=== PATIENT | female | born 1990 | race African-American/Black ===

== ENCOUNTER 2018-03-28 11:33 | Observation (INO) | payer MEDICAID, OTHER ==
[~2018-03-28] VITALS: Ht 152.4 cm; Wt 52.2 kg
[2018-03-28] MEDS ORDERED: PNV1TABL50 PO (11:46)
[2018-03-28 13:14] LABS: CLARITY URINE CLOUDY (CLEAR); COLOR URINE YELLOW (YELLOW); KETONES URINE NEGATIVE (NEGATIVE); LEUKOCYTE ESTERASE URINE 1+ (NEGATIVE); NITRITE URINE POSITIVE (NEGATIVE); OCCULT BLOOD URINE NEGATIVE (NEGATIVE); PH URINE 7.5 (4.5-8.0); PROTEIN URINE NEGATIVE (NEGATIVE); SPECIFIC GRAVITY URINE 1.013 (1.005-1.030)
[2018-03-28] MEDS ORDERED: LACTATED RINGERS 1,000 ML IV SCH (14:00)
[2018-03-28] MEDS ORDERED: CEFAZOLIN 2,000 MG in DEXT 5% WATER 100 ML IV SCH (14:45)
[2018-03-28] MEDS ORDERED: ACETAMINOPHEN 500MG TABLET PO SCH (15:00)
== END 2018-03-28 16:00 | disposition home or self-care (01) ==
LOC: L&D 11:33
PROVIDERS: ADMIT Specialist; ATTEND Specialist
DX: O26.892 Other specified pregnancy related conditions, second trimester (principal); R10.2 Pelvic and perineal pain; M79.652 Pain in left thigh; Z3A.23 23 weeks gestation of pregnancy
CPT/HCPCS: 81003; 96360; 96361; 99281; G0378; J0690; J7120; 96365; J7060

== ENCOUNTER 2018-06-14 08:58 | Observation (INO) | payer MEDICAID ==
[~2018-06-14] VITALS: Ht 154.9 cm; Wt 63.5 kg
[~2018-06-14 08:58] MED LIST: PNV1TABL50 PO
== END 2018-06-14 10:00 | disposition home or self-care (01) ==
LOC: L&D 08:58
PROVIDERS: ADMIT Obstetrics & Gynecology; ATTEND Obstetrics & Gynecology
DX: O26.893 Other specified pregnancy related conditions, third trimester (principal); R10.30 Lower abdominal pain, unspecified; R51 Headache; R07.89 Other chest pain; H53.8 Other visual disturbances; Z3A.35 35 weeks gestation of pregnancy
CPT/HCPCS: G0378

== ENCOUNTER 2021-09-18 17:09 | Inpatient (IN) | payer MEDICAID ==
[~2021-09-18] VITALS: Ht 175.3 cm; Wt 51.7 kg
[~2021-09-18 17:09] MED LIST changes: +AMIODARONE HCL 50MG/ML 3ML VIAL IV ONE; +EPINEPHRINE 0.1MG/ML (1:10,000) 10ML SYR ONE; +MAGNESIUM SULFATE 4G IN WATER 100ML PREMIX IV ONE; +MIDAZOLAM HCL 5 MG/5 ML VIAL ONE; +SODIUM BICARBONATE 8.4% 1 MEQ/ML 50ML SYR IV ONE
[2021-09-18] MEDS ORDERED: PROPOFOL 10MG/ML 100ML 100 ML IV ONE (17:30)
[2021-09-18] MEDS ORDERED: AMIODARONE HCL 150 MG in DEXT 5% WATER 97 ML IV ONE (17:30)
[2021-09-18] MEDS ORDERED: SODIUM CHLORIDE 0.9% 1,000 ML IV ONE (17:30)
[2021-09-18] MEDS ORDERED: EPINEPHRINE 10 MG in SODIUM CHLORIDE 0.9% 250 ML IV NR (17:30)
[2021-09-18] MEDS ORDERED: VANCOMYCIN 1G PREMIX 200 ML IV SCH (17:30)
[2021-09-18] MEDS ORDERED: PIPERACILLIN/TAZ 3.375G PREMIX 50 ML IV ONE (17:30)
[2021-09-18] MEDS ORDERED: MIDAZOLAM HCL 100 MG in DEXT 5% WATER 80 ML IV ONE (17:30)
[2021-09-18] MEDS ORDERED: MIDAZOLAM HCL 100 MG in SODIUM CHLORIDE 0.9% 100 ML IV PRN (17:45)
[2021-09-18] MEDS ORDERED: AMIODARONE HCL 900 MG in DEXT 5% WATER 500 ML IV ONE (17:45)
[2021-09-18] MEDS ORDERED: ALBUTEROL (0.083%) 2.5MG/3ML NEB HHN STA (17:53)
[2021-09-18 17:54] LABS: BASOPHILS % 0.2 % (0.0-2.0); HEMATOCRIT. 30.3 % (36.0-48.0); HEMOGLOBIN. 9.6 g/dL (12.0-16.0); LYMPHOCYTES % 20.1 % (20.0-50.0); MEAN CORPUSCULAR HEMOGLOBIN 28.5 pg (28.0-32.0); MEAN CORPUSCULAR VOLUME 90.1 fL (81.0-99.0); MONOCYTES % 6.3 % (2.0-8.0); NEUTROPHILS % 73.4 % (40.0-76.0); PLATELET 143 x1000/uL (130-400); RED BLOOD CELL COUNT 3.36 mill/uL (4.2-5.4); RED CELL DISTRIBUTION WIDTH 14.1 % (11.6-14.6)
[2021-09-18 17:58] LABS: BG BASE EXCESS -12.1 mmol/L (-2.0-2.0); BG CARBOXYHEMOGLOBIN 0.3 % (0.5-1.5); BG DEOXYHEMOGLOBIN 0.9 % (0.0-5.0); BG HCO3 ACT 15.3 mmol/L (22.0-26.0); BG METHEMOGLOBIN 0.3 % (0.0-1.5); BG OXYGEN SATURATION 99.1 % (92.0-98.5); BG OXYHEMOGLOBIN 98.5 % (94.0-97.0); BG PCO2 40.5 mmHg (35.0-45.0); BG PH 7.195 (7.350-7.450); BG PO2 380.4 mmHg (75.0-100.0); BG SAMPLE SITE RIGHT BRACHIAL; BG VENT MODE VENT - AC
[2021-09-18 18:01] LABS: CHLORIDE 105 mEq/L (98-107)
[2021-09-18 18:05] LABS: ETHANOL BLOOD < 10 mg/dL
[2021-09-18 18:07] LABS: CLARITY URINE CLOUDY (CLEAR); COLOR URINE DARK YELLOW (YELLOW); KETONES URINE TRACE (NEGATIVE); LEUKOCYTE ESTERASE URINE 1+ (NEGATIVE); NITRITE URINE NEGATIVE (NEGATIVE); OCCULT BLOOD URINE 2+ (NEGATIVE); PH URINE 5.5 (4.5-8.0); PROTEIN URINE 3+ (NEGATIVE); SPECIFIC GRAVITY URINE 1.028 (1.005-1.030)
[2021-09-18 18:09] LABS: CREATINE KINASE 106 IU/L (26-192)
[2021-09-18 18:24] LABS: METHADONE URINE SCREEN NEGATIVE (NEGATIVE)
[2021-09-18 18:25] LABS: *AMPHETAMINES SCREEN URINE NEGATIVE (NEGATIVE); *BARBITURATES SCREEN URINE NEGATIVE (NEGATIVE); *BENZODIAZEPINES SCREEN URINE NEGATIVE (NEGATIVE); *COCAINE SCREEN URINE NEGATIVE (NEGATIVE); OPIATES URINE SCREEN NEGATIVE (NEGATIVE); PHENCYCLIDINE URINE SCREEN NEGATIVE (NEGATIVE)
[2021-09-18 18:28] LABS: CANNABINOID URINE SCREEN PRESUMTIVE POSITIVE (NEGATIVE)
[2021-09-18] MEDS: EPINEPHRINE 10 MG in SODIUM CHLORIDE 0.9% 250 ML IV NR (18:59)
[2021-09-18] MEDS ORDERED: KCL 20MEQ/100ML PREMIX 100 ML IV NR (19:00)
[2021-09-18] MEDS ORDERED: HYDROCORTISONE SOD SUCCINATE 100 MG/2 ML VIAL IV NR (19:00)
[2021-09-18] MEDS ORDERED: SODIUM BICARBONATE 50 MEQ in DEXTROSE 5% WATER 1,000 ML IV ONE (19:00)
[2021-09-18 19:48] LABS: HCG SCREEN NEGATIVE
[2021-09-18 19:50] LABS: INR 1.4; PROTHROMBIN TIME 14.5 sec (9.6-11.0)
[2021-09-18] MEDS ORDERED: IOHEXOL-350 100 ML BOTTLE ONE (23:33)
[2021-09-19] VITALS (52 sets, daily range): BP systolic 78–125; BP diastolic 40–76
[2021-09-19 00:13] LABS: CHLORIDE 107 mEq/L (98-107)
[2021-09-19] MEDS ORDERED: DEXTROSE 50% WATER 50ML SYRINGE IV PRN (00:15)
[2021-09-19] MEDS ORDERED: MEPERIDINE HCL/PF 25MG/ML CPJ IV PRN (00:15)
[2021-09-19 00:19] LABS: PHOSPHORUS 3.3 mg/dL (2.5-4.9)
[2021-09-19] MEDS: INSULIN REGULAR 100U/100ML PMX 100 ML IV SCH ×2 (00:32→16:01)
[2021-09-19 00:34] LABS: CREATINE KINASE 4940 IU/L (26-192)
[2021-09-19] MEDS: BLOOD SUGAR DIAGNOSTIC STRIP TEST SCH ×22 (01:12→23:00)
[2021-09-19] MEDS: KCL 20MEQ/100ML X 2 FOR TOTAL KCL 40MEQ/200ML IV SCH ×5 (01:47→23:42)
[2021-09-19] MEDS: EPINEPHRINE 10 MG in SODIUM CHLORIDE 0.9% 250 ML IV NR (02:48)
[2021-09-19] MEDS ORDERED: PROPOFOL 10MG/ML 100ML 100 ML IV PRN ×2 (03:00→23:30)
[2021-09-19 05:08] LABS: HEMATOCRIT. 45.8 % (36.0-48.0); HEMOGLOBIN. 14.6 g/dL (12.0-16.0); MEAN CORPUSCULAR HEMOGLOBIN 28.8 pg (28.0-32.0); MEAN CORPUSCULAR VOLUME 90.5 fL (81.0-99.0); PLATELET 207 x1000/uL (130-400); RED BLOOD CELL COUNT 5.06 mill/uL (4.2-5.4); RED CELL DISTRIBUTION WIDTH 14.4 % (11.6-14.6)
[2021-09-19 05:15] LABS: CHLORIDE 109 mEq/L (98-107)
[2021-09-19 05:20] LABS: PHOSPHORUS 1.7 mg/dL (2.5-4.9)
[2021-09-19 06:10] LABS: BG BASE EXCESS -20.4 mmol/L (-2.0-2.0); BG CARBOXYHEMOGLOBIN 0.5 % (0.5-1.5); BG DEOXYHEMOGLOBIN 14.1 % (0.0-5.0); BG FRACTION INSPIRED OXYGEN 80; BG HCO3 ACT 8.5 mmol/L (22.0-26.0); BG METHEMOGLOBIN 0.3 % (0.0-1.5); BG OXYGEN SATURATION 85.8 % (92.0-98.5); BG OXYHEMOGLOBIN 85.1 % (94.0-97.0); BG PCO2 29.9 mmHg (35.0-45.0); BG PH 7.073 (7.350-7.450); BG PO2 62.8 mmHg (75.0-100.0); BG SAMPLE SITE RIGHT BRACHIAL; BG TOTAL HEMOGLOBIN 15.5 g/dL (12.0-18.0); BG TOTAL RESPIRATORY RATE 32 b/min; BG VENT MODE VENT - AC
[2021-09-19 06:10] LABS: CREATINE KINASE 6131 IU/L (26-192)
[2021-09-19] MEDS ORDERED: MIDAZOLAM 100MG/100ML PREMIX IV PRN (06:45)
[2021-09-19] MEDS ORDERED: SODIUM BICARBONATE 8.4% 1 MEQ/ML 50ML SYR IV SCH (08:00)
[2021-09-19] MEDS ORDERED: AMIODARONE HCL 900 MG in DEXT 5% WATER 500 ML IV SCH (08:00)
[2021-09-19] MEDS ORDERED: SODIUM BICARBONATE 50 MEQ in DEXTROSE 5% WATER 1,000 ML IV SCH (08:00)
[2021-09-19 08:11] LABS: INR 1.8; PARTIAL THROMBOPLASTIN TIME 37.6 sec (23.4-31.0); PROTHROMBIN TIME 18.9 sec (9.6-11.0)
[2021-09-19] MEDS ORDERED: PIPERACILLIN/TAZ 3.375G PREMIX 50 ML IV SCH (09:00)
[2021-09-19] MEDS: PANTOPRAZOLE SODIUM 40 MG/VIAL IV SCH (10:10)
[2021-09-19] MEDS ORDERED: FENTANYL CITRATE/PF 1,000 MCG in SODIUM CHLORIDE 0.9% 80 ML IV PRN (10:30)
[2021-09-19] MEDS ORDERED: BUSPIRONE HCL 10MG TABLET NG PRN (10:30)
[2021-09-19] MEDS ORDERED: FENTANYL CITRATE 2,500 MCG in SODIUM CHLORIDE 0.9% 200 ML IV PRN (10:45)
[2021-09-19] MEDS: SODIUM BICARBONATE 150 MEQ in DEXTROSE 5% WATER 1,000 ML IV SCH ×2 (11:00→15:26)
[2021-09-19 11:19] LABS: INR 1.9; PARTIAL THROMBOPLASTIN TIME 35.6 sec (23.4-31.0); PROTHROMBIN TIME 19.6 sec (9.6-11.0)
[2021-09-19] MEDS: NOREPINEPHRINE 32 MG in DEXT 5% WATER 218 ML IV PRN (12:55)
[2021-09-19 13:14] LABS: BG BASE EXCESS -14.4 mmol/L (-2.0-2.0); BG CARBOXYHEMOGLOBIN 0.1 % (0.5-1.5); BG DEOXYHEMOGLOBIN 30.6 % (0.0-5.0); BG FRACTION INSPIRED OXYGEN 80; BG HCO3 ACT 12.6 mmol/L (22.0-26.0); BG OXYGEN SATURATION 69.4 % (92.0-98.5); BG OXYHEMOGLOBIN 69.3 % (94.0-97.0); BG PCO2 33.4 mmHg (35.0-45.0); BG PH 7.193 (7.350-7.450); BG PO2 38.1 mmHg (75.0-100.0); BG SAMPLE SITE RIGHT BRACHIAL; BG TOTAL HEMOGLOBIN 16.8 g/dL (12.0-18.0); BG VENT MODE VENT - AC
[2021-09-19 13:21] LABS: PLATELET ESTIMATE NORMAL
[2021-09-19] MEDS ORDERED: SODIUM BICARBONATE 8.4% 1 MEQ/ML 50ML SYR IV NR (13:30)
[2021-09-19] MEDS ORDERED: MIDAZOLAM 100MG/100ML PMX 100 ML IV PRN (14:15)
[2021-09-19] MEDS: PIPERACILLIN/TAZOBACTAM 3.375 G in DEXTROSE 5% WATER 50 ML IV SCH ×2 (15:29→22:32)
[2021-09-19] MEDS: LEVETIRACETAM 500MG PREMIX 100 ML IV SCH ×2 (15:54→23:07)
[2021-09-19] MEDS: MIDAZOLAM HCL 100 MG in SODIUM CHLORIDE 0.9% 100 ML IV PRN (16:22)
[2021-09-19 16:28] LABS: CHLORIDE 112 mEq/L (98-107)
[2021-09-19 16:34] LABS: PHOSPHORUS 1.5 mg/dL (2.5-4.9)
[2021-09-19 17:54] LABS: BG BASE EXCESS -5.5 mmol/L (-2.0-2.0); BG CARBOXYHEMOGLOBIN 0.5 % (0.5-1.5); BG DEOXYHEMOGLOBIN 23.4 % (0.0-5.0); BG FRACTION INSPIRED OXYGEN 100; BG HCO3 ACT 17.6 mmol/L (22.0-26.0); BG OXYGEN SATURATION 76.5 % (92.0-98.5); BG OXYHEMOGLOBIN 76.1 % (94.0-97.0); BG PCO2 28.8 mmHg (35.0-45.0); BG PH 7.405 (7.350-7.450); BG PO2 37.2 mmHg (75.0-100.0); BG SAMPLE SITE RIGHT BRACHIAL; BG TOTAL HEMOGLOBIN 15.7 g/dL (12.0-18.0); BG VENT MODE VENT - AC
[2021-09-19 18:06] LABS: CREATINE KINASE 8333 IU/L (26-192)
[2021-09-19 21:59] LABS: PHOSPHORUS 1.1 mg/dL (2.5-4.9)
[2021-09-19 22:26] LABS: BG BASE EXCESS -1.9 mmol/L (-2.0-2.0); BG CARBOXYHEMOGLOBIN 0.1 % (0.5-1.5); BG DEOXYHEMOGLOBIN 9.3 % (0.0-5.0); BG FRACTION INSPIRED OXYGEN 100; BG HCO3 ACT 19.5 mmol/L (22.0-26.0); BG OXYGEN SATURATION 90.7 % (92.0-98.5); BG OXYHEMOGLOBIN 90.6 % (94.0-97.0); BG PCO2 25.9 mmHg (35.0-45.0); BG PH 7.495 (7.350-7.450); BG PO2 53.9 mmHg (75.0-100.0); BG SAMPLE SITE RIGHT BRACHIAL; BG TOTAL HEMOGLOBIN 15.8 g/dL (12.0-18.0); BG VENT MODE VENT - AC
[2021-09-19] MEDS: DEXTROSE 50% WATER 50ML SYRINGE IV PRN (22:33)
[2021-09-19 22:36] LABS: CHLORIDE 111 mEq/L (98-107)
[2021-09-19] MEDS ORDERED: POTASSIUM CHLORIDE INJ 40 MEQ in DEXT 5% WATER 250 ML IV ONE (23:15)
[2021-09-20] VITALS (95 sets, daily range): BP systolic 88–143; BP diastolic 43–69
[2021-09-20] MEDS ORDERED: SODIUM PHOS M BASIC D BASIC IV NR ×2
[2021-09-20] MEDS ORDERED: WATER IV NR ×2
[2021-09-20] MEDS ORDERED: DEXT IV NR ×2
[2021-09-20] MEDS: BLOOD SUGAR DIAGNOSTIC STRIP TEST SCH ×9 (00:27→14:08)
[2021-09-20] MEDS: DEXTROSE 50% WATER 50ML SYRINGE IV PRN (00:28)
[2021-09-20] MEDS: INSULIN LISPRO 100 UNITS/ML SUBCUT SCH ×7 (02:00→14:00)
[2021-09-20] MEDS ORDERED: DEXTROSE 50% WATER 50ML SYRINGE IV PRN ×2 (02:00→07:00)
[2021-09-20] MEDS: KCL 20MEQ/100ML X 2 FOR TOTAL KCL 40MEQ/200ML IV SCH (02:16)
[2021-09-20] MEDS ORDERED: FUROSEMIDE 20MG/2ML VIAL IVP NR (03:15)
[2021-09-20] MEDS: SODIUM BICARBONATE 150 MEQ in DEXTROSE 5% WATER 1,000 ML IV SCH (03:40)
[2021-09-20] MEDS: NOREPINEPHRINE 32 MG in DEXT 5% WATER 218 ML IV PRN ×2 (03:41→18:06)
[2021-09-20] MEDS: MIDAZOLAM HCL 100 MG in SODIUM CHLORIDE 0.9% 100 ML IV PRN ×2 (03:43→12:48)
[2021-09-20] MEDS ORDERED: ALBUMIN HUMAN 12.5G/250ML (5%) IV NR (05:15)
[2021-09-20] MEDS: PIPERACILLIN/TAZOBACTAM 3.375 G in DEXTROSE 5% WATER 50 ML IV SCH ×3 (05:58→22:08)
[2021-09-20] MEDS ORDERED: DEXTROSE 50% WATER 50ML SYRINGE IV ONE (06:00)
[2021-09-20 07:51] LABS: CHLORIDE 108 mEq/L (98-107)
[2021-09-20 07:56] LABS: PHOSPHORUS 1.3 mg/dL (2.5-4.9)
[2021-09-20] MEDS: LEVETIRACETAM 500MG PREMIX 100 ML IV SCH ×2 (08:28→21:37)
[2021-09-20] MEDS: PANTOPRAZOLE SODIUM 40 MG/VIAL IV SCH (08:28)
[2021-09-20] MEDS ORDERED: MAGNESIUM 2 G PREMIX 50 ML IV SCH (10:00)
[2021-09-20] MEDS ORDERED: POTASSIUM PHOS,M-BASIC-D-BASIC 30 MMOL in DEXT 5% WATER 500 ML IV SCH (10:00)
[2021-09-20] MEDS ORDERED: CALCIUM GLUCONATE 1GM PREMIX 50 ML IV SCH (10:00)
[2021-09-20 10:13] LABS: BG BASE EXCESS 2.5 mmol/L (-2.0-2.0); BG CARBOXYHEMOGLOBIN 0.3 % (0.5-1.5); BG DEOXYHEMOGLOBIN 4.1 % (0.0-5.0); BG HCO3 ACT 22.8 mmol/L (22.0-26.0); BG METHEMOGLOBIN 0.2 % (0.0-1.5); BG OXYGEN SATURATION 95.9 % (92.0-98.5); BG OXYHEMOGLOBIN 95.4 % (94.0-97.0); BG PCO2 24.3 mmHg (35.0-45.0); BG PO2 69.9 mmHg (75.0-100.0); BG SAMPLE SITE RIGHT BRACHIAL; BG TOTAL HEMOGLOBIN 13.4 g/dL (12.0-18.0); BG VENT MODE VENT - AC
[2021-09-20 10:27] LABS: BASOPHILS % 0.1 % (0.0-2.0); EOSINOPHILS % 0.1 % (0.0-5.0); HEMATOCRIT. 40.1 % (36.0-48.0); HEMOGLOBIN. 13.6 g/dL (12.0-16.0); LYMPHOCYTES % 13.1 % (20.0-50.0); MEAN CORPUSCULAR HEMOGLOBIN 28.7 pg (28.0-32.0); MEAN CORPUSCULAR VOLUME 84.4 fL (81.0-99.0); MEAN PLATELET VOLUME 9.7 fl (7.4-10.4); MONOCYTES % 3.2 % (2.0-8.0); NEUTROPHILS % 83.5 % (40.0-76.0); RED BLOOD CELL COUNT 4.75 mill/uL (4.2-5.4); RED CELL DISTRIBUTION WIDTH 14.2 % (11.6-14.6)
[2021-09-20 10:30] LABS: PLATELET 74 x1000/uL (130-400)
[2021-09-20 10:34] LABS: INR 2.7; PARTIAL THROMBOPLASTIN TIME 34.5 sec (23.4-31.0); PROTHROMBIN TIME 26.6 sec (9.6-11.0)
[2021-09-20 11:14] LABS: PHOSPHORUS 2.2 mg/dL (2.5-4.9)
[2021-09-20] MEDS ORDERED: DEXT 5%/0.45% NACL 1000ML 1,000 ML IV SCH (11:45)
[2021-09-20] MEDS ORDERED: VANCOMYCIN 1,000 MG in DEXT 5% WATER 250 ML IV SCH (12:00)
[2021-09-20 14:30] LABS: HEMATOCRIT. 39.6 % (36.0-48.0); HEMOGLOBIN. 13.2 g/dL (12.0-16.0); MEAN CORPUSCULAR VOLUME 83.9 fL (81.0-99.0); MEAN PLATELET VOLUME 9.7 fl (7.4-10.4); PLATELET 80 x1000/uL (130-400); RED BLOOD CELL COUNT 4.72 mill/uL (4.2-5.4); RED CELL DISTRIBUTION WIDTH 14.2 % (11.6-14.6)
[2021-09-20 14:40] LABS: CHLORIDE 103 mEq/L (98-107)
[2021-09-20 14:42] LABS: INR 2.9; PARTIAL THROMBOPLASTIN TIME 35.5 sec (23.4-31.0); PROTHROMBIN TIME 28.4 sec (9.6-11.0)
[2021-09-20 14:46] LABS: PHOSPHORUS 1.5 mg/dL (2.5-4.9)
[2021-09-20 15:14] LABS: NUCLEATED RED BLOOD CELLS 2 /100 WBC; PLATELET ESTIMATE SLIGHTLY DECREASED
[2021-09-20 16:11] LABS: BG BASE EXCESS 1.5 mmol/L (-2.0-2.0); BG CARBOXYHEMOGLOBIN 0.2 % (0.5-1.5); BG DEOXYHEMOGLOBIN 3.2 % (0.0-5.0); BG FRACTION INSPIRED OXYGEN 100; BG METHEMOGLOBIN 0.2 % (0.0-1.5); BG OXYGEN SATURATION 96.8 % (92.0-98.5); BG OXYHEMOGLOBIN 96.4 % (94.0-97.0); BG PCO2 27.6 mmHg (35.0-45.0); BG PH 7.539 (7.350-7.450); BG PO2 81.8 mmHg (75.0-100.0); BG SAMPLE SITE RIGHT RADIAL; BG VENT MODE VENT - AC
[2021-09-20] MEDS ORDERED: PROPOFOL 10MG/ML 100ML 100 ML IV PRN (18:45)
[2021-09-20 21:18] LABS: HEMATOCRIT. 40.3 % (36.0-48.0); HEMOGLOBIN. 13.3 g/dL (12.0-16.0); MEAN CORPUSCULAR HEMOGLOBIN 28.1 pg (28.0-32.0); MEAN CORPUSCULAR VOLUME 85.1 fL (81.0-99.0); MEAN PLATELET VOLUME 10.2 fl (7.4-10.4); PLATELET 75 x1000/uL (130-400); RED BLOOD CELL COUNT 4.74 mill/uL (4.2-5.4)
[2021-09-20 21:21] LABS: CHLORIDE 102 mEq/L (98-107)
[2021-09-20 21:28] LABS: PHOSPHORUS 3.2 mg/dL (2.5-4.9)
[2021-09-20 21:31] LABS: PARTIAL THROMBOPLASTIN TIME 34.7 sec (23.4-31.0); PROTHROMBIN TIME 20.7 sec (9.6-11.0)
[2021-09-20] MEDS: VANCOMYCIN 750 MG in DEXT 5% WATER 250 ML IV SCH (22:07)
[2021-09-20 22:29] LABS: PLATELET ESTIMATE NORMAL
[2021-09-21] VITALS (95 sets, daily range): BP systolic 88–127; BP diastolic 27–73
[2021-09-21 02:28] LABS: CHLORIDE 101 mEq/L (98-107)
[2021-09-21 02:37] LABS: HEMATOCRIT. 35.9 % (36.0-48.0); HEMOGLOBIN. 12.2 g/dL (12.0-16.0); MEAN CORPUSCULAR HEMOGLOBIN 28.4 pg (28.0-32.0); MEAN CORPUSCULAR VOLUME 83.8 fL (81.0-99.0); MEAN PLATELET VOLUME 11.2 fl (7.4-10.4); PLATELET 82 x1000/uL (130-400); RED BLOOD CELL COUNT 4.28 mill/uL (4.2-5.4); RED CELL DISTRIBUTION WIDTH 14.2 % (11.6-14.6)
[2021-09-21 02:54] LABS: INR 1.6; PARTIAL THROMBOPLASTIN TIME 34.7 sec (23.4-31.0); PROTHROMBIN TIME 16.7 sec (9.6-11.0)
[2021-09-21 04:12] LABS: PLATELET ESTIMATE DECREASED
[2021-09-21] MEDS: VANCOMYCIN 750 MG in DEXT 5% WATER 250 ML IV SCH (06:48)
[2021-09-21] MEDS: PIPERACILLIN/TAZOBACTAM 3.375 G in DEXTROSE 5% WATER 50 ML IV SCH ×3 (06:49→22:00)
[2021-09-21 06:53] LABS: VANCOMYCIN TROUGH 22.3 ug/mL (5.0-10.0)
[2021-09-21] MEDS: PANTOPRAZOLE SODIUM 40 MG/VIAL IV SCH (08:03)
[2021-09-21] MEDS: THIAMINE HCL 100MG TABLET PO SCH (08:03)
[2021-09-21] MEDS: MULTIVITAMINS,THER W-MINERALS TABLET PO SCH (08:03)
[2021-09-21] MEDS: LEVETIRACETAM 500MG PREMIX 100 ML IV SCH ×3 (08:03→22:01)
[2021-09-21] MEDS: FOLIC ACID 1MG TABLET PO SCH (08:04)
[2021-09-21 09:09] LABS: HEMATOCRIT. 32.5 % (36.0-48.0); HEMOGLOBIN. 11.2 g/dL (12.0-16.0); MEAN CORPUSCULAR HEMOGLOBIN 28.6 pg (28.0-32.0); MEAN CORPUSCULAR VOLUME 83.4 fL (81.0-99.0); MEAN PLATELET VOLUME 11.2 fl (7.4-10.4); PLATELET 83 x1000/uL (130-400); RED CELL DISTRIBUTION WIDTH 14.3 % (11.6-14.6)
[2021-09-21 09:15] LABS: BG BASE EXCESS 3.8 mmol/L (-2.0-2.0); BG CARBOXYHEMOGLOBIN 0.1 % (0.5-1.5); BG DEOXYHEMOGLOBIN 0.7 % (0.0-5.0); BG FRACTION INSPIRED OXYGEN 90; BG HCO3 ACT 25.6 mmol/L (22.0-26.0); BG METHEMOGLOBIN 0.4 % (0.0-1.5); BG OXYGEN SATURATION 99.3 % (92.0-98.5); BG OXYHEMOGLOBIN 98.8 % (94.0-97.0); BG PCO2 29.6 mmHg (35.0-45.0); BG PH 7.554 (7.350-7.450); BG PO2 224.8 mmHg (75.0-100.0); BG SAMPLE SITE RIGHT BRACHIAL; BG TOTAL HEMOGLOBIN 11.8 g/dL (12.0-18.0); BG VENT MODE VENT - AC
[2021-09-21 09:15] LABS: CHLORIDE 103 mEq/L (98-107)
[2021-09-21 09:29] LABS: INR 1.3; PARTIAL THROMBOPLASTIN TIME 33.3 sec (23.4-31.0)
[2021-09-21 09:51] LABS: PLATELET ESTIMATE DECREASED
[2021-09-21] MEDS ORDERED: POTASSIUM CHLORIDE 20MEQ/PACKET PO NR (10:15)
[2021-09-21] MEDS ORDERED: KCL 20MEQ/100ML PREMIX 100 ML IV NR (11:00)
[2021-09-21 14:51] LABS: HEMATOCRIT. 35.8 % (36.0-48.0); HEMOGLOBIN. 11.8 g/dL (12.0-16.0); MEAN CORPUSCULAR HEMOGLOBIN 27.9 pg (28.0-32.0); MEAN CORPUSCULAR VOLUME 84.4 fL (81.0-99.0); MEAN PLATELET VOLUME 10.3 fl (7.4-10.4); PLATELET 73 x1000/uL (130-400); RED BLOOD CELL COUNT 4.24 mill/uL (4.2-5.4); RED CELL DISTRIBUTION WIDTH 14.5 % (11.6-14.6)
[2021-09-21 15:01] LABS: CHLORIDE 102 mEq/L (98-107)
[2021-09-21 15:02] LABS: INR 1.2; PARTIAL THROMBOPLASTIN TIME 32.5 sec (23.4-31.0); PROTHROMBIN TIME 12.9 sec (9.6-11.0)
[2021-09-21 15:07] LABS: PHOSPHORUS 4.5 mg/dL (2.5-4.9)
[2021-09-21 15:23] LABS: NUCLEATED RED BLOOD CELLS 1 /100 WBC
[2021-09-21 15:24] LABS: PLATELET ESTIMATE DECREASED
[2021-09-21 16:36] LABS: BG BASE EXCESS 2.5 mmol/L (-2.0-2.0); BG CARBOXYHEMOGLOBIN 0.2 % (0.5-1.5); BG DEOXYHEMOGLOBIN 5.2 % (0.0-5.0); BG FRACTION INSPIRED OXYGEN 50; BG METHEMOGLOBIN 0.3 % (0.0-1.5); BG OXYGEN SATURATION 94.8 % (92.0-98.5); BG OXYHEMOGLOBIN 94.3 % (94.0-97.0); BG PCO2 36.5 mmHg (35.0-45.0); BG PH 7.471 (7.350-7.450); BG PO2 72.7 mmHg (75.0-100.0); BG SAMPLE SITE RIGHT BRACHIAL; BG TOTAL HEMOGLOBIN 12.1 g/dL (12.0-18.0); BG VENT MODE VENT - AC
[2021-09-21] MEDS: VANCOMYCIN 500MG PREMIX 100 ML IV SCH (17:17)
[2021-09-22] VITALS (76 sets, daily range): BP systolic 110–146; BP diastolic 50–93
[2021-09-22 06:06] LABS: HEMATOCRIT. 31.5 % (36.0-48.0); HEMOGLOBIN. 10.9 g/dL (12.0-16.0); MEAN CORPUSCULAR HEMOGLOBIN 29.1 pg (28.0-32.0); MEAN CORPUSCULAR VOLUME 84.1 fL (81.0-99.0); RED BLOOD CELL COUNT 3.74 mill/uL (4.2-5.4); RED CELL DISTRIBUTION WIDTH 14.5 % (11.6-14.6)
[2021-09-22 06:21] LABS: CHLORIDE 107 mEq/L (98-107)
[2021-09-22 06:37] LABS: INR 1.1; PARTIAL THROMBOPLASTIN TIME 28.6 sec (23.4-31.0); PROTHROMBIN TIME 11.4 sec (9.6-11.0)
[2021-09-22 06:39] LABS: PHOSPHORUS 2.1 mg/dL (2.5-4.9)
[2021-09-22] MEDS: VANCOMYCIN 500MG PREMIX 100 ML IV SCH (07:10)
[2021-09-22] MEDS: PIPERACILLIN/TAZOBACTAM 3.375 G in DEXTROSE 5% WATER 50 ML IV SCH ×3 (07:10→23:04)
[2021-09-22 07:48] LABS: PLATELET ESTIMATE DECREASED
[2021-09-22] MEDS: MULTIVITAMINS,THER W-MINERALS TABLET PO SCH (08:49)
[2021-09-22] MEDS: FOLIC ACID 1MG TABLET PO SCH (08:49)
[2021-09-22] MEDS: PANTOPRAZOLE SODIUM 40 MG/VIAL IV SCH (08:49)
[2021-09-22] MEDS: THIAMINE HCL 100MG TABLET PO SCH (08:49)
[2021-09-22] MEDS: LEVETIRACETAM 500MG PREMIX 100 ML IV SCH ×2 (08:51→22:00)
[2021-09-22 08:52] LABS: BG BASE EXCESS 3.1 mmol/L (-2.0-2.0); BG CARBOXYHEMOGLOBIN 0.1 % (0.5-1.5); BG DEOXYHEMOGLOBIN 6.5 % (0.0-5.0); BG FRACTION INSPIRED OXYGEN 50; BG HCO3 ACT 27.4 mmol/L (22.0-26.0); BG METHEMOGLOBIN 0.2 % (0.0-1.5); BG OXYGEN SATURATION 93.5 % (92.0-98.5); BG OXYHEMOGLOBIN 93.2 % (94.0-97.0); BG PCO2 40.6 mmHg (35.0-45.0); BG PH 7.447 (7.350-7.450); BG PO2 67.6 mmHg (75.0-100.0); BG SAMPLE SITE RIGHT BRACHIAL; BG TOTAL HEMOGLOBIN 12.8 g/dL (12.0-18.0); BG VENT MODE VENT - AC
[2021-09-22] MEDS: METOCLOPRAMIDE HCL 10MG/2ML VIAL IV SCH ×2 (11:11→17:14)
[2021-09-22] MEDS ORDERED: IPRATROPIUM/ALBUTEROL 0.5-3(2.5)MG/3ML NEB HHN PRN (11:15)
[2021-09-22] MEDS ORDERED: METOCLOPRAMIDE HCL 5MG TABLET PO SCH (12:00)
[2021-09-22] MEDS: IPRATROPIUM/ALBUTEROL 0.5-3(2.5)MG/3ML NEB HHN SCH ×3 (12:05→20:09)
[2021-09-22 15:32] LABS: HEMATOCRIT. 30.4 % (36.0-48.0); HEMOGLOBIN. 10.2 g/dL (12.0-16.0); MEAN CORPUSCULAR VOLUME 83.4 fL (81.0-99.0); MEAN PLATELET VOLUME 9.7 fl (7.4-10.4); PLATELET 72 x1000/uL (130-400); RED BLOOD CELL COUNT 3.65 mill/uL (4.2-5.4); RED CELL DISTRIBUTION WIDTH 14.6 % (11.6-14.6)
[2021-09-22 15:38] LABS: CHLORIDE 108 mEq/L (98-107)
[2021-09-22 15:44] LABS: PHOSPHORUS 1.8 mg/dL (2.5-4.9)
[2021-09-22 15:49] LABS: INR 1.1; PROTHROMBIN TIME 11.5 sec (9.6-11.0)
[2021-09-22 16:05] LABS: PLATELET ESTIMATE DECREASED
[2021-09-22 16:21] LABS: BG BASE EXCESS 2.2 mmol/L (-2.0-2.0); BG CARBOXYHEMOGLOBIN 0.3 % (0.5-1.5); BG DEOXYHEMOGLOBIN 4.6 % (0.0-5.0); BG FRACTION INSPIRED OXYGEN 50; BG HCO3 ACT 26.2 mmol/L (22.0-26.0); BG METHEMOGLOBIN 0.4 % (0.0-1.5); BG OXYGEN SATURATION 95.4 % (92.0-98.5); BG OXYHEMOGLOBIN 94.7 % (94.0-97.0); BG PCO2 38.2 mmHg (35.0-45.0); BG PH 7.454 (7.350-7.450); BG PO2 75.5 mmHg (75.0-100.0); BG SAMPLE SITE LEFT RADIAL; BG TOTAL HEMOGLOBIN 10.3 g/dL (12.0-18.0); BG VENT MODE VENT - AC
[2021-09-22] MEDS ORDERED: FENTANYL CITRATE/PF 2,500 MCG in SODIUM CHLORIDE 0.9% 200 ML IV PRN (18:00)
[2021-09-23] VITALS (30 sets, daily range): BP systolic 123–148; BP diastolic 67–92
[2021-09-23] MEDS: IPRATROPIUM/ALBUTEROL 0.5-3(2.5)MG/3ML NEB HHN SCH ×6 (00:07→21:10)
[2021-09-23] MEDS: METOCLOPRAMIDE HCL 10MG/2ML VIAL IV SCH ×5 (00:34→23:24)
[2021-09-23] MEDS: ACETAMINOPHEN 325MG TABLET PO PRN ×2 (06:37→19:35)
[2021-09-23] MEDS: PIPERACILLIN/TAZOBACTAM 3.375 G in DEXTROSE 5% WATER 50 ML IV SCH ×3 (06:37→23:23)
[2021-09-23 06:49] LABS: HEMATOCRIT. 28.1 % (36.0-48.0); HEMOGLOBIN. 9.7 g/dL (12.0-16.0); MEAN CORPUSCULAR HEMOGLOBIN 29.1 pg (28.0-32.0); MEAN CORPUSCULAR VOLUME 83.9 fL (81.0-99.0); MEAN PLATELET VOLUME 8.9 fl (7.4-10.4); PLATELET 75 x1000/uL (130-400); RED BLOOD CELL COUNT 3.35 mill/uL (4.2-5.4); RED CELL DISTRIBUTION WIDTH 14.7 % (11.6-14.6)
[2021-09-23] MEDS: FOLIC ACID 1MG TABLET PO SCH (08:47)
[2021-09-23] MEDS: THIAMINE HCL 100MG TABLET PO SCH (08:47)
[2021-09-23] MEDS: PANTOPRAZOLE SODIUM 40 MG/VIAL IV SCH (08:47)
[2021-09-23] MEDS: MULTIVITAMINS,THER W-MINERALS TABLET PO SCH (08:47)
[2021-09-23 08:58] LABS: CHLORIDE 109 mEq/L (98-107)
[2021-09-23 09:21] LABS: BG BASE EXCESS 0.1 mmol/L (-2.0-2.0); BG CARBOXYHEMOGLOBIN 0.3 % (0.5-1.5); BG DEOXYHEMOGLOBIN 4.1 % (0.0-5.0); BG FRACTION INSPIRED OXYGEN 35; BG HCO3 ACT 23.7 mmol/L (22.0-26.0); BG METHEMOGLOBIN 0.2 % (0.0-1.5); BG OXYGEN SATURATION 95.9 % (92.0-98.5); BG OXYHEMOGLOBIN 95.4 % (94.0-97.0); BG PCO2 34.9 mmHg (35.0-45.0); BG PO2 79.7 mmHg (75.0-100.0); BG SAMPLE SITE LEFT RADIAL; BG TOTAL HEMOGLOBIN 11.4 g/dL (12.0-18.0); BG VENT MODE VENT - AC
[2021-09-23 10:07] LABS: PLATELET ESTIMATE SLIGHTLY DECREASED
[2021-09-23] MEDS: LEVETIRACETAM 500MG PREMIX 100 ML IV SCH ×2 (12:34→21:55)
[2021-09-23 16:50] LABS: BG BASE EXCESS 0.4 mmol/L (-2.0-2.0); BG CARBOXYHEMOGLOBIN 0.3 % (0.5-1.5); BG DEOXYHEMOGLOBIN 5.5 % (0.0-5.0); BG FRACTION INSPIRED OXYGEN 35; BG HCO3 ACT 24.1 mmol/L (22.0-26.0); BG METHEMOGLOBIN 0.3 % (0.0-1.5); BG OXYGEN SATURATION 94.5 % (92.0-98.5); BG OXYHEMOGLOBIN 93.9 % (94.0-97.0); BG PCO2 35.1 mmHg (35.0-45.0); BG PH 7.454 (7.350-7.450); BG PO2 68.6 mmHg (75.0-100.0); BG SAMPLE SITE LEFT RADIAL; BG TOTAL HEMOGLOBIN 10.5 g/dL (12.0-18.0); BG VENT MODE VENT - AC
[2021-09-23] MEDS ORDERED: FENTANYL CITRATE/PF 2,500 MCG in DEXT 5% WATER 200 ML IV PRN (19:45)
[2021-09-24] VITALS (72 sets, daily range): BP systolic 120–174; BP diastolic 27–120
[2021-09-24] MEDS: IPRATROPIUM/ALBUTEROL 0.5-3(2.5)MG/3ML NEB HHN SCH ×4 (00:01→16:56)
[2021-09-24] MEDS: METOCLOPRAMIDE HCL 10MG/2ML VIAL IV SCH ×3 (05:21→17:24)
[2021-09-24] MEDS: PIPERACILLIN/TAZOBACTAM 3.375 G in DEXTROSE 5% WATER 50 ML IV SCH ×2 (05:21→14:58)
[2021-09-24] MEDS: ACETAMINOPHEN 325MG TABLET PO PRN ×3 (05:22→20:48)
[2021-09-24 06:49] LABS: HEMATOCRIT. 29.3 % (36.0-48.0); HEMOGLOBIN. 10.1 g/dL (12.0-16.0); MEAN CORPUSCULAR HEMOGLOBIN 28.8 pg (28.0-32.0); MEAN PLATELET VOLUME 8.6 fl (7.4-10.4); PLATELET 66 x1000/uL (130-400); RED BLOOD CELL COUNT 3.49 mill/uL (4.2-5.4); RED CELL DISTRIBUTION WIDTH 14.9 % (11.6-14.6)
[2021-09-24 07:08] LABS: CHLORIDE 112 mEq/L (98-107)
[2021-09-24 08:16] LABS: PLATELET ESTIMATE DECREASED
[2021-09-24] MEDS: FOLIC ACID 1MG TABLET PO SCH (09:18)
[2021-09-24] MEDS: MULTIVITAMINS,THER W-MINERALS TABLET PO SCH (09:18)
[2021-09-24] MEDS: THIAMINE HCL 100MG TABLET PO SCH (09:18)
[2021-09-24] MEDS: PANTOPRAZOLE SODIUM 40 MG/VIAL IV SCH (09:18)
[2021-09-24] MEDS: LEVETIRACETAM 500MG PREMIX 100 ML IV SCH ×2 (09:19→20:49)
[2021-09-24 10:41] LABS: BG BASE EXCESS 2.9 mmol/L (-2.0-2.0); BG CARBOXYHEMOGLOBIN 0.3 % (0.5-1.5); BG FRACTION INSPIRED OXYGEN 45; BG HCO3 ACT 27.7 mmol/L (22.0-26.0); BG METHEMOGLOBIN 0.6 % (0.0-1.5); BG OXYHEMOGLOBIN 98.1 % (94.0-97.0); BG PCO2 43.6 mmHg (35.0-45.0); BG PH 7.421 (7.350-7.450); BG PO2 166.3 mmHg (75.0-100.0); BG SAMPLE SITE RIGHT RADIAL; BG TOTAL HEMOGLOBIN 10.9 g/dL (12.0-18.0); BG VENT MODE VENT - AC
[2021-09-24] MEDS: HYDRALAZINE 20MG/ML VIAL IV PRN (13:42)
[2021-09-24] MEDS: MEROPENEM 1,000 MG in SODIUM CHLORIDE 0.9% 100 ML IV SCH (20:48)
[2021-09-25] VITALS (47 sets, daily range): BP systolic 138–181; BP diastolic 65–115
[2021-09-25] MEDS: IPRATROPIUM/ALBUTEROL 0.5-3(2.5)MG/3ML NEB HHN SCH ×5 (00:28→20:12)
[2021-09-25] MEDS: HYDRALAZINE 20MG/ML VIAL IV PRN ×3 (00:45→14:20)
[2021-09-25] MEDS: MEROPENEM 1,000 MG in SODIUM CHLORIDE 0.9% 100 ML IV SCH ×3 (03:00→19:37)
[2021-09-25 05:43] LABS: HEMATOCRIT. 30.2 % (36.0-48.0); HEMOGLOBIN. 10.2 g/dL (12.0-16.0); MEAN CORPUSCULAR HEMOGLOBIN 28.3 pg (28.0-32.0); MEAN CORPUSCULAR VOLUME 83.9 fL (81.0-99.0); MEAN PLATELET VOLUME 9.2 fl (7.4-10.4); PLATELET 142 x1000/uL (130-400); RED CELL DISTRIBUTION WIDTH 15.2 % (11.6-14.6)
[2021-09-25 05:56] LABS: CHLORIDE 115 mEq/L (98-107)
[2021-09-25] MEDS: METOCLOPRAMIDE HCL 10MG/2ML VIAL IV SCH ×4 (06:16→19:37)
[2021-09-25] MEDS: ACETAMINOPHEN 325MG TABLET PO PRN ×3 (06:17→22:41)
[2021-09-25] MEDS: LEVETIRACETAM 500MG PREMIX 100 ML IV SCH ×2 (08:06→22:02)
[2021-09-25] MEDS: MULTIVITAMINS,THER W-MINERALS TABLET PO SCH (08:06)
[2021-09-25] MEDS: THIAMINE HCL 100MG TABLET PO SCH (08:06)
[2021-09-25] MEDS: PANTOPRAZOLE SODIUM 40 MG/VIAL IV SCH (08:06)
[2021-09-25] MEDS: FOLIC ACID 1MG TABLET PO SCH (08:06)
[2021-09-25 09:30] LABS: BG BASE EXCESS 2.3 mmol/L (-2.0-2.0); BG CARBOXYHEMOGLOBIN 0.3 % (0.5-1.5); BG DEOXYHEMOGLOBIN 0.9 % (0.0-5.0); BG FRACTION INSPIRED OXYGEN 45; BG HCO3 ACT 24.6 mmol/L (22.0-26.0); BG METHEMOGLOBIN 0.2 % (0.0-1.5); BG OXYGEN SATURATION 99.1 % (92.0-98.5); BG OXYHEMOGLOBIN 98.6 % (94.0-97.0); BG PCO2 30.7 mmHg (35.0-45.0); BG PH 7.522 (7.350-7.450); BG PO2 213.8 mmHg (75.0-100.0); BG SAMPLE SITE RIGHT RADIAL; BG TOTAL HEMOGLOBIN 11.3 g/dL (12.0-18.0); BG VENT MODE VENT - AC
[2021-09-25 11:48] LABS: BG BASE EXCESS 0.4 mmol/L (-2.0-2.0); BG CARBOXYHEMOGLOBIN 0.2 % (0.5-1.5); BG DEOXYHEMOGLOBIN 0.9 % (0.0-5.0); BG FRACTION INSPIRED OXYGEN 70; BG HCO3 ACT 21.8 mmol/L (22.0-26.0); BG METHEMOGLOBIN 0.5 % (0.0-1.5); BG OXYGEN SATURATION 99.1 % (92.0-98.5); BG OXYHEMOGLOBIN 98.4 % (94.0-97.0); BG PCO2 25.2 mmHg (35.0-45.0); BG PH 7.555 (7.350-7.450); BG PO2 300.3 mmHg (75.0-100.0); BG SAMPLE SITE RIGHT RADIAL; BG TOTAL HEMOGLOBIN 10.1 g/dL (12.0-18.0); BG VENT MODE VENT - AC
[2021-09-25] MEDS ORDERED: METOPROLOL TARTRATE 5MG/5ML VIAL IV NR (15:00)
[2021-09-25 15:20] LABS: PLATELET ESTIMATE NORMAL
[2021-09-25] MEDS: METOPROLOL TARTRATE 50MG TABLET PO SCH (22:02)
[2021-09-26] VITALS (75 sets, daily range): BP systolic 109–187; BP diastolic 56–114
[2021-09-26] MEDS: IPRATROPIUM/ALBUTEROL 0.5-3(2.5)MG/3ML NEB HHN SCH ×5 (00:21→20:00)
[2021-09-26] MEDS: METOCLOPRAMIDE HCL 10MG/2ML VIAL IV SCH ×4 (00:30→17:15)
[2021-09-26] MEDS: HYDRALAZINE 20MG/ML VIAL IV PRN ×2 (01:12→08:10)
[2021-09-26] MEDS: MEROPENEM 1,000 MG in SODIUM CHLORIDE 0.9% 100 ML IV SCH ×3 (02:06→18:41)
[2021-09-26 05:59] LABS: HEMATOCRIT. 31.5 % (36.0-48.0); HEMOGLOBIN. 10.5 g/dL (12.0-16.0); MEAN CORPUSCULAR VOLUME 84.3 fL (81.0-99.0); MEAN PLATELET VOLUME 8.9 fl (7.4-10.4); PLATELET 256 x1000/uL (130-400); RED BLOOD CELL COUNT 3.74 mill/uL (4.2-5.4); RED CELL DISTRIBUTION WIDTH 15.2 % (11.6-14.6)
[2021-09-26 06:21] LABS: CHLORIDE 121 mEq/L (98-107)
[2021-09-26] MEDS: PANTOPRAZOLE SODIUM 40 MG/VIAL IV SCH (08:10)
[2021-09-26] MEDS: LEVETIRACETAM 500MG PREMIX 100 ML IV SCH ×2 (08:10→20:44)
[2021-09-26 08:21] LABS: BG BASE EXCESS -1.7 mmol/L (-2.0-2.0); BG CARBOXYHEMOGLOBIN 0.3 % (0.5-1.5); BG DEOXYHEMOGLOBIN 1.3 % (0.0-5.0); BG FRACTION INSPIRED OXYGEN 40; BG HCO3 ACT 19.3 mmol/L (22.0-26.0); BG METHEMOGLOBIN 0.5 % (0.0-1.5); BG OXYGEN SATURATION 98.7 % (92.0-98.5); BG OXYHEMOGLOBIN 97.9 % (94.0-97.0); BG PCO2 22.7 mmHg (35.0-45.0); BG PH 7.548 (7.350-7.450); BG PO2 148.7 mmHg (75.0-100.0); BG SAMPLE SITE RIGHT RADIAL; BG TOTAL HEMOGLOBIN 11.1 g/dL (12.0-18.0); BG VENT MODE VENT - AC
[2021-09-26] MEDS: THIAMINE HCL 100MG TABLET PO SCH (09:00)
[2021-09-26] MEDS: MULTIVITAMINS,THER W-MINERALS TABLET PO SCH (09:00)
[2021-09-26] MEDS: METOPROLOL TARTRATE 50MG TABLET PO SCH ×2 (09:00→20:44)
[2021-09-26] MEDS: FOLIC ACID 1MG TABLET PO SCH (09:00)
[2021-09-26 10:23] LABS: PLATELET ESTIMATE NORMAL
[2021-09-26] MEDS ORDERED: METOPROLOL TARTRATE 5MG/5ML VIAL IV PRN ×2 (11:15)
[2021-09-26] MEDS ORDERED: NA PHOS,M-B/NA PHOS,DI-BA ENEMA 118ML PR NR (11:15)
[2021-09-26] MEDS: DEXTROSE 5% WATER 1,000 ML IV SCH (11:26)
[2021-09-26] MEDS: BISACODYL 10MG SUPP PR PRN (11:42)
[2021-09-26] MEDS ORDERED: DILTIAZEM HCL 5MG/ML 5ML VIAL IV PRN (12:45)
[2021-09-26] MEDS ORDERED: DILTIAZEM HCL 5MG/ML 5ML VIAL IV NR (13:45)
[2021-09-26] MEDS: DILTIAZEM 125MG/125ML PMX 100 ML IV PRN (15:50)
[2021-09-26] MEDS ORDERED: DIGOXIN 500MCG/2ML AMP IV NR (16:45)
[2021-09-26] MEDS ORDERED: ACETAMINOPHEN 650MG SUPP PR PRN (17:00)
[2021-09-27] VITALS (95 sets, daily range): BP systolic 115–209; BP diastolic 53–140
[2021-09-27] MEDS: IPRATROPIUM/ALBUTEROL 0.5-3(2.5)MG/3ML NEB HHN SCH ×4 (00:27→12:12)
[2021-09-27] MEDS: METOCLOPRAMIDE HCL 10MG/2ML VIAL IV SCH ×4 (00:30→18:22)
[2021-09-27] MEDS: MEROPENEM 1,000 MG in SODIUM CHLORIDE 0.9% 100 ML IV SCH ×3 (05:10→18:22)
[2021-09-27] MEDS: MICAFUNGIN 100 MG in SODIUM CHLORIDE 0.9% 100 ML IV SCH ×2 (05:10→21:19)
[2021-09-27 06:15] LABS: HEMATOCRIT. 31.3 % (36.0-48.0); HEMOGLOBIN. 10.2 g/dL (12.0-16.0); MEAN CORPUSCULAR HEMOGLOBIN 27.8 pg (28.0-32.0); MEAN CORPUSCULAR VOLUME 85.4 fL (81.0-99.0); MEAN PLATELET VOLUME 8.9 fl (7.4-10.4); PLATELET 315 x1000/uL (130-400); RED BLOOD CELL COUNT 3.66 mill/uL (4.2-5.4)
[2021-09-27 06:30] LABS: INR 1.2; PROTHROMBIN TIME 13.1 sec (9.6-11.0)
[2021-09-27 06:35] LABS: CHLORIDE 122 mEq/L (98-107)
[2021-09-27] MEDS: DEXTROSE 5% WATER 1,000 ML IV SCH ×2 (06:39→20:43)
[2021-09-27 07:01] LABS: HEPATITIS B SURFACE ANTIGEN NEGATIVE
[2021-09-27] MEDS: DILTIAZEM 125MG/125ML PMX 100 ML IV PRN ×2 (07:08→21:41)
[2021-09-27] MEDS ORDERED: LIDOCAINE HCL/EPINEPHRINE 1%-EPI 1:100,000 30 ML VIAL INFIL ONE (08:52)
[2021-09-27] MEDS: THIAMINE HCL 100MG TABLET PO SCH (09:00)
[2021-09-27] MEDS: FOLIC ACID 1MG TABLET PO SCH (09:00)
[2021-09-27] MEDS: MULTIVITAMINS,THER W-MINERALS TABLET PO SCH (09:00)
[2021-09-27] MEDS: METOPROLOL TARTRATE 50MG TABLET PO SCH (09:00)
[2021-09-27] MEDS: PANTOPRAZOLE SODIUM 40 MG/VIAL IV SCH (09:48)
[2021-09-27] MEDS: LEVETIRACETAM 500MG PREMIX 100 ML IV SCH ×2 (09:48→22:30)
[2021-09-27 10:12] LABS: PLATELET ESTIMATE NORMAL
[2021-09-27] MEDS ORDERED: ROCURONIUM BROMIDE 10MG/ML VIAL 5ML IV ONE (11:30)
[2021-09-27] MEDS ORDERED: CALCIUM CHLORIDE 1GM/10ML SYR IV ONE (11:38)
[2021-09-27] MEDS ORDERED: ALBUMIN HUMAN 12.5GM/50ML (25%) IV ONE (11:38)
[2021-09-27] MEDS ORDERED: SODIUM BICARBONATE 8.4% 1 MEQ/ML 50ML SYR IV ONE (11:39)
[2021-09-27] MEDS ORDERED: METOPROLOL TARTRATE 25MG TABLET PO SCH (13:00)
[2021-09-27] MEDS: MORPHINE SULFATE 2 MG/ML CPJ (NOT FOR IM USE) IV PRN ×2 (13:39→18:22)
[2021-09-27] MEDS ORDERED: SODIUM CHLORIDE 0.45% 500 ML IV ONE ×2 (14:45)
[2021-09-27] MEDS ORDERED: NALOXONE HCL 0.4MG/ML VIAL IV PRN (15:00)
[2021-09-27] MEDS: METOPROLOL TARTRATE 100MG TABLET PO SCH (21:20)
[2021-09-27] MEDS: IPRATROPIUM BROMIDE (0.02%) 0.5MG/2.5ML NEB HHN SCH (21:30)
[2021-09-28] VITALS (94 sets, daily range): BP systolic 120–176; BP diastolic 57–112
[2021-09-28] MEDS: METOCLOPRAMIDE HCL 10MG/2ML VIAL IV SCH ×4 (00:04→18:22)
[2021-09-28] MEDS: IPRATROPIUM BROMIDE (0.02%) 0.5MG/2.5ML NEB HHN SCH ×4 (01:18→19:46)
[2021-09-28] MEDS: MEROPENEM 1,000 MG in SODIUM CHLORIDE 0.9% 100 ML IV SCH ×3 (03:18→21:00)
[2021-09-28] MEDS: DEXTROSE 5% WATER 1,000 ML IV SCH ×3 (03:20→19:43)
[2021-09-28 06:04] LABS: HEMATOCRIT. 28.9 % (36.0-48.0); HEMOGLOBIN. 9.5 g/dL (12.0-16.0); MEAN CORPUSCULAR HEMOGLOBIN 28.2 pg (28.0-32.0); MEAN CORPUSCULAR VOLUME 85.6 fL (81.0-99.0); MEAN PLATELET VOLUME 8.7 fl (7.4-10.4); PLATELET 337 x1000/uL (130-400); RED BLOOD CELL COUNT 3.38 mill/uL (4.2-5.4); RED CELL DISTRIBUTION WIDTH 14.9 % (11.6-14.6)
[2021-09-28 06:13] LABS: INR 1.2
[2021-09-28 06:21] LABS: CHLORIDE 120 mEq/L (98-107)
[2021-09-28 08:31] LABS: PLATELET ESTIMATE NORMAL
[2021-09-28 08:52] LABS: BG BASE EXCESS -2.9 mmol/L (-2.0-2.0); BG CARBOXYHEMOGLOBIN 0.3 % (0.5-1.5); BG DEOXYHEMOGLOBIN 1.8 % (0.0-5.0); BG FRACTION INSPIRED OXYGEN 35; BG HCO3 ACT 18.3 mmol/L (22.0-26.0); BG METHEMOGLOBIN 0.3 % (0.0-1.5); BG OXYGEN SATURATION 98.2 % (92.0-98.5); BG OXYHEMOGLOBIN 97.6 % (94.0-97.0); BG PCO2 22.1 mmHg (35.0-45.0); BG PH 7.536 (7.350-7.450); BG SAMPLE SITE RIGHT RADIAL; BG TOTAL HEMOGLOBIN 10.6 g/dL (12.0-18.0); BG VENT MODE VENT - AC
[2021-09-28] MEDS: LEVETIRACETAM 500MG PREMIX 100 ML IV SCH ×2 (09:43→21:00)
[2021-09-28] MEDS: PANTOPRAZOLE SODIUM 40 MG/VIAL IV SCH (09:43)
[2021-09-28] MEDS: ZINC SULFATE 220 MG ( 50 ) CAPSULE PO SCH (09:44)
[2021-09-28] MEDS: ASCORBIC ACID 500 MG TABLET PO SCH (09:44)
[2021-09-28] MEDS: MULTIVITAMINS,THER W-MINERALS TABLET PO SCH (09:44)
[2021-09-28] MEDS: METOPROLOL TARTRATE 100MG TABLET PO SCH ×2 (09:44→21:01)
[2021-09-28] MEDS: DOCUSATE SODIUM 100MG CAPSULE PO SCH ×2 (09:44→18:22)
[2021-09-28] MEDS ORDERED: BISACODYL 10MG SUPP PR NR (11:15)
[2021-09-28] MEDS: MICAFUNGIN 100 MG in SODIUM CHLORIDE 0.9% 100 ML IV SCH (21:01)
[2021-09-28] MEDS: DILTIAZEM 125MG/125ML PMX 100 ML IV PRN (21:06)
[2021-09-29] VITALS (82 sets, daily range): BP systolic 109–167; BP diastolic 52–111
[2021-09-29] MEDS: METOCLOPRAMIDE HCL 10MG/2ML VIAL IV SCH ×5 (00:14→23:53)
[2021-09-29] MEDS: IPRATROPIUM BROMIDE (0.02%) 0.5MG/2.5ML NEB HHN SCH ×4 (01:11→20:41)
[2021-09-29] MEDS: MEROPENEM 1,000 MG in SODIUM CHLORIDE 0.9% 100 ML IV SCH ×3 (03:30→20:21)
[2021-09-29] MEDS: DEXTROSE 5% WATER 1,000 ML IV SCH (03:31)
[2021-09-29 05:54] LABS: BASOPHILS % 0.2 % (0.0-2.0); EOSINOPHILS % 1.9 % (0.0-5.0); HEMATOCRIT. 30.5 % (36.0-48.0); HEMOGLOBIN. 10.1 g/dL (12.0-16.0); INR 1.2; LYMPHOCYTES % 8.6 % (20.0-50.0); MEAN CORPUSCULAR HEMOGLOBIN 28.6 pg (28.0-32.0); MEAN CORPUSCULAR VOLUME 86.3 fL (81.0-99.0); MONOCYTES % 3.9 % (2.0-8.0); NEUTROPHILS % 85.4 % (40.0-76.0); PLATELET 400 x1000/uL (130-400); PROTHROMBIN TIME 12.4 sec (9.6-11.0); RED BLOOD CELL COUNT 3.53 mill/uL (4.2-5.4); RED CELL DISTRIBUTION WIDTH 15.2 % (11.6-14.6)
[2021-09-29 06:13] LABS: CHLORIDE 113 mEq/L (98-107)
[2021-09-29 09:19] LABS: BG BASE EXCESS -4.1 mmol/L (-2.0-2.0); BG CARBOXYHEMOGLOBIN 0.6 % (0.5-1.5); BG DEOXYHEMOGLOBIN 0.8 % (0.0-5.0); BG FRACTION INSPIRED OXYGEN 35; BG HCO3 ACT 18.8 mmol/L (22.0-26.0); BG METHEMOGLOBIN 0.3 % (0.0-1.5); BG OXYGEN SATURATION 99.2 % (92.0-98.5); BG OXYHEMOGLOBIN 98.3 % (94.0-97.0); BG PCO2 26.8 mmHg (35.0-45.0); BG PH 7.465 (7.350-7.450); BG PO2 188.1 mmHg (75.0-100.0); BG SAMPLE SITE RIGHT RADIAL; BG TOTAL HEMOGLOBIN 8.4 g/dL (12.0-18.0); BG VENT MODE VENT - AC
[2021-09-29] MEDS: LEVETIRACETAM 500MG PREMIX 100 ML IV SCH ×2 (10:16→21:17)
[2021-09-29] MEDS: PANTOPRAZOLE SODIUM 40 MG/VIAL IV SCH (10:16)
[2021-09-29] MEDS: DEXT 5%/0.45% NACL 1000ML 1,000 ML IV SCH ×2 (10:17→17:29)
[2021-09-29] MEDS: ZINC SULFATE 220 MG ( 50 ) CAPSULE PO SCH (10:50)
[2021-09-29] MEDS: DOCUSATE SODIUM 100MG CAPSULE PO SCH ×2 (10:50→17:00)
[2021-09-29] MEDS: METOPROLOL TARTRATE 100MG TABLET PO SCH ×2 (10:50→20:13)
[2021-09-29] MEDS: MULTIVITAMINS,THER W-MINERALS TABLET PO SCH (10:50)
[2021-09-29] MEDS: ASCORBIC ACID 500 MG TABLET PO SCH (10:50)
[2021-09-29] MEDS: MICAFUNGIN 100 MG in SODIUM CHLORIDE 0.9% 100 ML IV SCH (18:29)
[2021-09-29] MEDS: MORPHINE SULFATE 2 MG/ML CPJ (NOT FOR IM USE) IV PRN (23:54)
[2021-09-30] VITALS (94 sets, daily range): BP systolic 109–169; BP diastolic 46–99
[2021-09-30] MEDS: IPRATROPIUM BROMIDE (0.02%) 0.5MG/2.5ML NEB HHN SCH ×4 (00:54→20:09)
[2021-09-30] MEDS: DEXT 5%/0.45% NACL 1000ML 1,000 ML IV SCH ×3 (01:37→16:47)
[2021-09-30] MEDS: DILTIAZEM 125MG/125ML PMX 100 ML IV PRN ×3 (01:38→16:40)
[2021-09-30] MEDS: HYDRALAZINE 20MG/ML VIAL IV PRN (03:07)
[2021-09-30] MEDS: MEROPENEM 1,000 MG in SODIUM CHLORIDE 0.9% 100 ML IV SCH ×3 (03:08→19:59)
[2021-09-30] MEDS: LORAZEPAM 2MG/ML CPJ IV PRN (04:26)
[2021-09-30 06:00] LABS: INR 1.2; PROTHROMBIN TIME 12.6 sec (9.6-11.0)
[2021-09-30 06:06] LABS: BASOPHILS % 0.3 % (0.0-2.0); EOSINOPHILS % 1.2 % (0.0-5.0); HEMATOCRIT. 28.1 % (36.0-48.0); HEMOGLOBIN. 9.3 g/dL (12.0-16.0); LYMPHOCYTES % 7.5 % (20.0-50.0); MEAN CORPUSCULAR HEMOGLOBIN 28.7 pg (28.0-32.0); MEAN CORPUSCULAR VOLUME 86.5 fL (81.0-99.0); MEAN PLATELET VOLUME 8.9 fl (7.4-10.4); PLATELET 409 x1000/uL (130-400); RED BLOOD CELL COUNT 3.25 mill/uL (4.2-5.4); RED CELL DISTRIBUTION WIDTH 14.9 % (11.6-14.6)
[2021-09-30] MEDS: METOCLOPRAMIDE HCL 10MG/2ML VIAL IV SCH ×4 (06:09→23:22)
[2021-09-30 06:14] LABS: CHLORIDE 116 mEq/L (98-107)
[2021-09-30 08:41] LABS: BG BASE EXCESS -3.1 mmol/L (-2.0-2.0); BG CARBOXYHEMOGLOBIN 0.3 % (0.5-1.5); BG DEOXYHEMOGLOBIN 1.2 % (0.0-5.0); BG FRACTION INSPIRED OXYGEN 35; BG HCO3 ACT 19.6 mmol/L (22.0-26.0); BG METHEMOGLOBIN 0.3 % (0.0-1.5); BG OXYGEN SATURATION 98.8 % (92.0-98.5); BG OXYHEMOGLOBIN 98.2 % (94.0-97.0); BG PCO2 27.1 mmHg (35.0-45.0); BG PH 7.477 (7.350-7.450); BG PO2 199.4 mmHg (75.0-100.0); BG SAMPLE SITE RIGHT RADIAL; BG TOTAL HEMOGLOBIN 9.7 g/dL (12.0-18.0); BG VENT MODE VENT - AC
[2021-09-30] MEDS: PANTOPRAZOLE SODIUM 40 MG/VIAL IV SCH (08:46)
[2021-09-30] MEDS: LEVETIRACETAM 500MG PREMIX 100 ML IV SCH ×2 (08:47→20:00)
[2021-09-30] MEDS: ZINC SULFATE 220 MG ( 50 ) CAPSULE PO SCH (08:48)
[2021-09-30] MEDS: DOCUSATE SODIUM 100MG CAPSULE PO SCH ×2 (08:48→17:00)
[2021-09-30] MEDS: METOPROLOL TARTRATE 100MG TABLET PO SCH ×2 (08:48→20:00)
[2021-09-30] MEDS: MULTIVITAMINS,THER W-MINERALS TABLET PO SCH (08:49)
[2021-09-30] MEDS: ASCORBIC ACID 500 MG TABLET PO SCH (08:49)
[2021-09-30] MEDS ORDERED: POTASSIUM CHLORIDE INJ 40 MEQ in DEXT 5% WATER 250 ML IV ONE (11:30)
[2021-09-30] MEDS: BISACODYL 10MG SUPP PR PRN (12:52)
[2021-09-30] MEDS: KCL 20MEQ/100ML PREMIX 100 ML IV SCH ×2 (12:53→16:38)
[2021-09-30] MEDS ORDERED: BISACODYL 10MG SUPP PR NR (15:45)
[2021-09-30] MEDS ORDERED: NA PHOS,M-B/NA PHOS,DI-BA ENEMA 118ML PR NR (19:30)
[2021-09-30] MEDS: MICAFUNGIN 100 MG in SODIUM CHLORIDE 0.9% 100 ML IV SCH (21:13)
[2021-10-01] VITALS (94 sets, daily range): BP systolic 114–163; BP diastolic 48–129
[2021-10-01] MEDS: IPRATROPIUM BROMIDE (0.02%) 0.5MG/2.5ML NEB HHN SCH ×4 (00:25→20:44)
[2021-10-01] MEDS: DEXT 5%/0.45% NACL 1000ML 1,000 ML IV SCH ×3 (01:37→17:10)
[2021-10-01] MEDS: DILTIAZEM 125MG/125ML PMX 100 ML IV PRN ×2 (01:38→13:30)
[2021-10-01] MEDS: LORAZEPAM 2MG/ML CPJ IV PRN (02:28)
[2021-10-01] MEDS: METOCLOPRAMIDE HCL 10MG/2ML VIAL IV SCH ×3 (05:01→17:09)
[2021-10-01 06:13] LABS: BASOPHILS % 0.5 % (0.0-2.0); EOSINOPHILS % 1.2 % (0.0-5.0); HEMATOCRIT. 23.9 % (36.0-48.0); HEMOGLOBIN. 8.1 g/dL (12.0-16.0); LYMPHOCYTES % 9.6 % (20.0-50.0); MEAN CORPUSCULAR HEMOGLOBIN 29.2 pg (28.0-32.0); MEAN CORPUSCULAR VOLUME 86.5 fL (81.0-99.0); MEAN PLATELET VOLUME 8.1 fl (7.4-10.4); MONOCYTES % 10.5 % (2.0-8.0); NEUTROPHILS % 78.2 % (40.0-76.0); PLATELET 450 x1000/uL (130-400); RED BLOOD CELL COUNT 2.77 mill/uL (4.2-5.4); RED CELL DISTRIBUTION WIDTH 14.8 % (11.6-14.6)
[2021-10-01 06:21] LABS: CHLORIDE 117 mEq/L (98-107); INR 1.2; PROTHROMBIN TIME 12.9 sec (9.6-11.0)
[2021-10-01] MEDS: METOPROLOL TARTRATE 100MG TABLET PO SCH ×2 (09:00→21:00)
[2021-10-01] MEDS: ZINC SULFATE 220 MG ( 50 ) CAPSULE PO SCH (09:00)
[2021-10-01] MEDS: DOCUSATE SODIUM 100MG CAPSULE PO SCH ×2 (09:00→17:00)
[2021-10-01] MEDS: ASCORBIC ACID 500 MG TABLET PO SCH (09:00)
[2021-10-01] MEDS: MULTIVITAMINS,THER W-MINERALS TABLET PO SCH (09:00)
[2021-10-01] MEDS ORDERED: POTASSIUM CHLORIDE 20MEQ TABLET SR PO NR (09:15)
[2021-10-01] MEDS: LEVETIRACETAM 500MG PREMIX 100 ML IV SCH ×2 (09:26→21:02)
[2021-10-01] MEDS: PANTOPRAZOLE SODIUM 40 MG/VIAL IV SCH (09:26)
[2021-10-01] MEDS: KCL 20MEQ/100ML PREMIX 100 ML IV SCH ×2 (11:15→13:30)
[2021-10-01] MEDS ORDERED: VECURONIUM BROMIDE 10 MG/VIAL IV NR (17:15)
[2021-10-02] VITALS (64 sets, daily range): BP systolic 115–168; BP diastolic 52–99
[2021-10-02] MEDS: METOCLOPRAMIDE HCL 10MG/2ML VIAL IV SCH ×4 (00:50→17:43)
[2021-10-02] MEDS: DEXT 5%/0.45% NACL 1000ML 1,000 ML IV SCH ×3 (00:50→17:43)
[2021-10-02] MEDS: IPRATROPIUM BROMIDE (0.02%) 0.5MG/2.5ML NEB HHN SCH ×4 (01:14→20:36)
[2021-10-02] MEDS: DILTIAZEM 125MG/125ML PMX 100 ML IV PRN (03:43)
[2021-10-02 05:54] LABS: BASOPHILS % 0.6 % (0.0-2.0); EOSINOPHILS % 1.1 % (0.0-5.0); HEMATOCRIT. 24.7 % (36.0-48.0); HEMOGLOBIN. 8.4 g/dL (12.0-16.0); LYMPHOCYTES % 10.2 % (20.0-50.0); MEAN CORPUSCULAR HEMOGLOBIN 29.3 pg (28.0-32.0); MEAN CORPUSCULAR VOLUME 85.9 fL (81.0-99.0); MEAN PLATELET VOLUME 8.2 fl (7.4-10.4); MONOCYTES % 11.6 % (2.0-8.0); NEUTROPHILS % 76.5 % (40.0-76.0); PLATELET 525 x1000/uL (130-400); RED BLOOD CELL COUNT 2.88 mill/uL (4.2-5.4); RED CELL DISTRIBUTION WIDTH 14.7 % (11.6-14.6)
[2021-10-02 05:58] LABS: CHLORIDE 114 mEq/L (98-107)
[2021-10-02 08:27] LABS: BG CARBOXYHEMOGLOBIN 0.3 % (0.5-1.5); BG DEOXYHEMOGLOBIN 0.8 % (0.0-5.0); BG FRACTION INSPIRED OXYGEN 35; BG HCO3 ACT 22.8 mmol/L (22.0-26.0); BG METHEMOGLOBIN 0.2 % (0.0-1.5); BG OXYGEN SATURATION 99.2 % (92.0-98.5); BG OXYHEMOGLOBIN 98.7 % (94.0-97.0); BG PCO2 29.5 mmHg (35.0-45.0); BG PH 7.506 (7.350-7.450); BG PO2 188.9 mmHg (75.0-100.0); BG SAMPLE SITE RIGHT RADIAL; BG TOTAL HEMOGLOBIN 8.1 g/dL (12.0-18.0); BG TOTAL RESPIRATORY RATE 16 b/min; BG VENT MODE VENT - AC
[2021-10-02] MEDS: LEVETIRACETAM 500MG PREMIX 100 ML IV SCH ×2 (09:07→22:41)
[2021-10-02] MEDS: ZINC SULFATE 220 MG ( 50 ) CAPSULE PO SCH (09:07)
[2021-10-02] MEDS: PANTOPRAZOLE SODIUM 40 MG/VIAL IV SCH (09:07)
[2021-10-02] MEDS: MULTIVITAMINS,THER W-MINERALS TABLET PO SCH (09:07)
[2021-10-02] MEDS: ASCORBIC ACID 500 MG TABLET PO SCH (09:08)
[2021-10-02] MEDS: DOCUSATE SODIUM 100MG CAPSULE PO SCH ×2 (09:08→17:00)
[2021-10-02] MEDS: METOPROLOL TARTRATE 100MG TABLET PO SCH ×2 (09:08→21:10)
[2021-10-02] MEDS: METHYLPREDNISOLONE SOD SUCC 40 MG/ML VIAL IV SCH ×2 (11:02→17:43)
[2021-10-03] VITALS (19 sets, daily range): BP systolic 126–167; BP diastolic 53–107
[2021-10-03] MEDS: METOCLOPRAMIDE HCL 10MG/2ML VIAL IV SCH ×5 (00:43→23:33)
[2021-10-03] MEDS: DEXT 5%/0.45% NACL 1000ML 1,000 ML IV SCH ×3 (00:43→17:16)
[2021-10-03] MEDS: IPRATROPIUM BROMIDE (0.02%) 0.5MG/2.5ML NEB HHN SCH ×4 (01:38→20:25)
[2021-10-03] MEDS: METHYLPREDNISOLONE SOD SUCC 40 MG/ML VIAL IV SCH ×3 (04:05→18:19)
[2021-10-03] MEDS ORDERED: CEFAZOLIN 1000MG PREMIX 50 ML IV NR (08:00)
[2021-10-03] MEDS: PANTOPRAZOLE SODIUM 40 MG/VIAL IV SCH (08:39)
[2021-10-03] MEDS: ZINC SULFATE 220 MG ( 50 ) CAPSULE PO SCH (08:39)
[2021-10-03] MEDS: LEVETIRACETAM 500MG PREMIX 100 ML IV SCH ×2 (08:39→21:13)
[2021-10-03] MEDS: MULTIVITAMINS,THER W-MINERALS TABLET PO SCH (08:40)
[2021-10-03] MEDS: DOCUSATE SODIUM 100MG CAPSULE PO SCH ×2 (08:40→17:16)
[2021-10-03] MEDS: METOPROLOL TARTRATE 100MG TABLET PO SCH ×2 (08:41→21:14)
[2021-10-03] MEDS: ASCORBIC ACID 500 MG TABLET PO SCH (08:41)
[2021-10-03 11:27] LABS: INR 1.2; PROTHROMBIN TIME 12.7 sec (9.6-11.0)
[2021-10-04] VITALS (12 sets, daily range): BP systolic 122–165; BP diastolic 50–92
[2021-10-04] MEDS: METHYLPREDNISOLONE SOD SUCC 40 MG/ML VIAL IV SCH ×3 (01:21→17:07)
[2021-10-04] MEDS: IPRATROPIUM BROMIDE (0.02%) 0.5MG/2.5ML NEB HHN SCH ×3 (02:11→20:20)
[2021-10-04] MEDS: DEXT 5%/0.45% NACL 1000ML 1,000 ML IV SCH ×3 (04:47→17:08)
[2021-10-04] MEDS: METOCLOPRAMIDE HCL 10MG/2ML VIAL IV SCH ×4 (05:01→23:45)
[2021-10-04] MEDS: HYDRALAZINE 20MG/ML VIAL IV PRN (06:20)
[2021-10-04] MEDS: LORAZEPAM 2MG/ML CPJ IV PRN (06:49)
[2021-10-04] MEDS: LEVETIRACETAM 500MG PREMIX 100 ML IV SCH ×2 (08:49→21:13)
[2021-10-04] MEDS: PANTOPRAZOLE SODIUM 40 MG/VIAL IV SCH (08:49)
[2021-10-04] MEDS: DOCUSATE SODIUM 100MG CAPSULE PO SCH ×2 (09:00→17:07)
[2021-10-04] MEDS: METOPROLOL TARTRATE 100MG TABLET PO SCH ×2 (09:00→21:14)
[2021-10-04] MEDS: MULTIVITAMINS,THER W-MINERALS TABLET PO SCH (09:00)
[2021-10-04] MEDS: ZINC SULFATE 220 MG ( 50 ) CAPSULE PO SCH (09:00)
[2021-10-04] MEDS: ASCORBIC ACID 500 MG TABLET PO SCH (09:00)
[2021-10-04] MEDS ORDERED: CEFAZOLIN 1000MG PREMIX 50 ML IV NR (13:00)
[2021-10-04 14:24] LABS: BASOPHILS % 0.2 % (0.0-2.0); HEMATOCRIT. 25.1 % (36.0-48.0); HEMOGLOBIN. 8.5 g/dL (12.0-16.0); LYMPHOCYTES % 9.3 % (20.0-50.0); MEAN CORPUSCULAR HEMOGLOBIN 28.7 pg (28.0-32.0); MEAN CORPUSCULAR VOLUME 84.9 fL (81.0-99.0); MEAN PLATELET VOLUME 7.9 fl (7.4-10.4); MONOCYTES % 6.2 % (2.0-8.0); NEUTROPHILS % 84.3 % (40.0-76.0); PLATELET 617 x1000/uL (130-400); RED BLOOD CELL COUNT 2.95 mill/uL (4.2-5.4); RED CELL DISTRIBUTION WIDTH 14.6 % (11.6-14.6)
[2021-10-04 14:30] LABS: CHLORIDE 114 mEq/L (98-107)
[2021-10-04 14:48] LABS: INR 1.1; PROTHROMBIN TIME 11.6 sec (9.6-11.0)
[2021-10-04] MEDS ORDERED: BISACODYL 10MG SUPP PR NR (17:00)
[2021-10-04] MEDS ORDERED: SORBITOL 70% SOLN 30ML PO NR (17:00)
[2021-10-04] MEDS: SORBITOL 70% SOLN 30ML PO NR (18:08)
[2021-10-04] MEDS ORDERED: NA PHOS,M-B/NA PHOS,DI-BA ENEMA 118ML PR NR (22:00)
[2021-10-05] VITALS (12 sets, daily range): BP systolic 128–158; BP diastolic 54–91
[2021-10-05] MEDS: IPRATROPIUM BROMIDE (0.02%) 0.5MG/2.5ML NEB HHN SCH ×4 (00:10→20:32)
[2021-10-05] MEDS: DEXT 5%/0.45% NACL 1000ML 1,000 ML IV SCH ×3 (01:19→17:30)
[2021-10-05] MEDS: METHYLPREDNISOLONE SOD SUCC 40 MG/ML VIAL IV SCH ×3 (01:19→17:48)
[2021-10-05] MEDS: METOCLOPRAMIDE HCL 10MG/2ML VIAL IV SCH ×3 (05:20→17:48)
[2021-10-05 07:00] LABS: HEMATOCRIT. 25.6 % (36.0-48.0); HEMOGLOBIN. 8.8 g/dL (12.0-16.0); MEAN CORPUSCULAR HEMOGLOBIN 29.2 pg (28.0-32.0); MEAN CORPUSCULAR VOLUME 84.7 fL (81.0-99.0); MEAN PLATELET VOLUME 7.7 fl (7.4-10.4); PLATELET 624 x1000/uL (130-400); RED BLOOD CELL COUNT 3.02 mill/uL (4.2-5.4); RED CELL DISTRIBUTION WIDTH 14.8 % (11.6-14.6)
[2021-10-05 07:10] LABS: INR 1.2; PROTHROMBIN TIME 12.4 sec (9.6-11.0)
[2021-10-05 07:29] LABS: CHLORIDE 112 mEq/L (98-107)
[2021-10-05] MEDS: DOCUSATE SODIUM 100MG CAPSULE PO SCH ×2 (09:00→17:00)
[2021-10-05] MEDS: METOPROLOL TARTRATE 100MG TABLET PO SCH ×2 (10:11→21:55)
[2021-10-05] MEDS: PANTOPRAZOLE SODIUM 40 MG/VIAL IV SCH (10:12)
[2021-10-05] MEDS: ASCORBIC ACID 500 MG TABLET PO SCH (10:12)
[2021-10-05] MEDS: LEVETIRACETAM 500MG PREMIX 100 ML IV SCH ×2 (10:12→21:55)
[2021-10-05] MEDS: MULTIVITAMINS,THER W-MINERALS TABLET PO SCH (10:12)
[2021-10-05] MEDS: ZINC SULFATE 220 MG ( 50 ) CAPSULE PO SCH (10:12)
[2021-10-05] MEDS: LORAZEPAM 2MG/ML CPJ IV PRN (14:10)
[2021-10-05] MEDS ORDERED: VECURONIUM BROMIDE 10 MG/VIAL IV NR (15:15)
[2021-10-05 15:51] LABS: PLATELET ESTIMATE INCREASED
[2021-10-05] MEDS: SORBITOL 70% SOLN 30ML PO NR (18:00)
[2021-10-06] VITALS (12 sets, daily range): BP systolic 107–159; BP diastolic 56–90
[2021-10-06] MEDS ORDERED: BISACODYL 10MG SUPP PR NR
[2021-10-06] MEDS: METOCLOPRAMIDE HCL 10MG/2ML VIAL IV SCH ×4 (00:17→17:58)
[2021-10-06] MEDS: IPRATROPIUM BROMIDE (0.02%) 0.5MG/2.5ML NEB HHN SCH ×4 (01:40→21:02)
[2021-10-06] MEDS: METHYLPREDNISOLONE SOD SUCC 40 MG/ML VIAL IV SCH ×3 (02:32→17:58)
[2021-10-06] MEDS: DEXT 5%/0.45% NACL 1000ML 1,000 ML IV SCH ×3 (04:33→17:02)
[2021-10-06 06:42] LABS: INR 1.1; PROTHROMBIN TIME 11.8 sec (9.6-11.0)
[2021-10-06 06:53] LABS: HEMATOCRIT. 25.5 % (36.0-48.0); HEMOGLOBIN. 8.6 g/dL (12.0-16.0); MEAN CORPUSCULAR HEMOGLOBIN 28.8 pg (28.0-32.0); MEAN CORPUSCULAR VOLUME 85.2 fL (81.0-99.0); MEAN PLATELET VOLUME 7.9 fl (7.4-10.4); PLATELET 538 x1000/uL (130-400); RED CELL DISTRIBUTION WIDTH 14.3 % (11.6-14.6)
[2021-10-06 06:55] LABS: CHLORIDE 108 mEq/L (98-107)
[2021-10-06] MEDS: ZINC SULFATE 220 MG ( 50 ) CAPSULE PO SCH (09:00)
[2021-10-06] MEDS: ASCORBIC ACID 500 MG TABLET PO SCH (09:00)
[2021-10-06] MEDS: DOCUSATE SODIUM 100MG CAPSULE PO SCH ×2 (09:00→17:00)
[2021-10-06] MEDS: MULTIVITAMINS,THER W-MINERALS TABLET PO SCH (09:00)
[2021-10-06] MEDS: METOPROLOL TARTRATE 100MG TABLET PO SCH ×2 (09:00→21:00)
[2021-10-06] MEDS: LEVETIRACETAM 500MG PREMIX 100 ML IV SCH ×2 (09:07→21:00)
[2021-10-06] MEDS: PANTOPRAZOLE SODIUM 40 MG/VIAL IV SCH (09:07)
[2021-10-06 12:56] LABS: PLATELET ESTIMATE INCREASED
[2021-10-06] MEDS: HYDRALAZINE 20MG/ML VIAL IV PRN (13:25)
[2021-10-06] MEDS ORDERED: CEFAZOLIN 1000MG PREMIX 50 ML IV SCH (14:00)
[2021-10-06] MEDS ORDERED: KCL 20MEQ/100ML PREMIX 100 ML IV NR (14:00)
[2021-10-06] MEDS ORDERED: METOPROLOL TARTRATE 5MG/5ML VIAL IV NR (15:00)
[2021-10-06] MEDS ORDERED: FENTANYL CITRATE/PF 50MCG/ML 2ML VIAL ONE (15:14)
[2021-10-06] MEDS ORDERED: MIDAZOLAM HCL 5 MG/5 ML VIAL ONE (15:14)
[2021-10-06] MEDS ORDERED: MIDAZOLAM HCL 5 MG/5 ML VIAL IV PRN (16:00)
[2021-10-06] MEDS ORDERED: VECURONIUM BROMIDE 10 MG/VIAL IV NR (16:45)
[2021-10-06] MEDS: SORBITOL 70% SOLN 30ML PO NR (17:51)
[2021-10-07] VITALS (24 sets, daily range): BP systolic 115–153; BP diastolic 57–104
[2021-10-07] MEDS: DEXT 5%/0.45% NACL 1000ML 1,000 ML IV SCH ×3 (00:32→17:08)
[2021-10-07] MEDS: IPRATROPIUM BROMIDE (0.02%) 0.5MG/2.5ML NEB HHN SCH ×4 (01:45→20:20)
[2021-10-07] MEDS: METHYLPREDNISOLONE SOD SUCC 40 MG/ML VIAL IV SCH ×3 (02:00→17:08)
[2021-10-07 05:49] LABS: CHLORIDE 106 mEq/L (98-107)
[2021-10-07 05:56] LABS: INR 1.1; PROTHROMBIN TIME 11.7 sec (9.6-11.0)
[2021-10-07] MEDS: METOCLOPRAMIDE HCL 10MG/2ML VIAL IV SCH ×5 (06:00→23:52)
[2021-10-07 06:11] LABS: HEMATOCRIT. 28.1 % (36.0-48.0); HEMOGLOBIN. 9.4 g/dL (12.0-16.0); MEAN CORPUSCULAR HEMOGLOBIN 28.4 pg (28.0-32.0); MEAN CORPUSCULAR VOLUME 85.5 fL (81.0-99.0); MEAN PLATELET VOLUME 7.6 fl (7.4-10.4); PLATELET 570 x1000/uL (130-400); RED BLOOD CELL COUNT 3.29 mill/uL (4.2-5.4); RED CELL DISTRIBUTION WIDTH 14.7 % (11.6-14.6)
[2021-10-07] MEDS: LEVETIRACETAM 500MG PREMIX 100 ML IV SCH ×2 (10:21→20:45)
[2021-10-07] MEDS: DOCUSATE SODIUM 100MG CAPSULE PO SCH ×2 (10:22→17:08)
[2021-10-07] MEDS: MULTIVITAMINS,THER W-MINERALS TABLET PO SCH (10:22)
[2021-10-07] MEDS: ASCORBIC ACID 500 MG TABLET PO SCH (10:22)
[2021-10-07] MEDS: ZINC SULFATE 220 MG ( 50 ) CAPSULE PO SCH (10:22)
[2021-10-07] MEDS: METOPROLOL TARTRATE 100MG TABLET PO SCH ×2 (10:23→20:46)
[2021-10-07] MEDS: PANTOPRAZOLE SODIUM 40 MG/VIAL IV SCH (10:25)
[2021-10-07 12:24] LABS: PLATELET ESTIMATE MARKEDLY INCREASED
[2021-10-07 14:24] LABS: BG BASE EXCESS -0.4 mmol/L (-2.0-2.0); BG CARBOXYHEMOGLOBIN 0.3 % (0.5-1.5); BG DEOXYHEMOGLOBIN 0.9 % (0.0-5.0); BG HCO3 ACT 21.9 mmol/L (22.0-26.0); BG METHEMOGLOBIN 0.3 % (0.0-1.5); BG OXYGEN SATURATION 99.1 % (92.0-98.5); BG OXYHEMOGLOBIN 98.5 % (94.0-97.0); BG PCO2 28.1 mmHg (35.0-45.0); BG PO2 177.4 mmHg (75.0-100.0); BG SAMPLE SITE RIGHT RADIAL; BG TOTAL HEMOGLOBIN 9.7 g/dL (12.0-18.0); BG VENT MODE VENT - AC
[2021-10-08] VITALS (22 sets, daily range): BP systolic 105–149; BP diastolic 49–105
[2021-10-08] MEDS: DEXT 5%/0.45% NACL 1000ML 1,000 ML IV SCH ×3 (01:30→17:43)
[2021-10-08] MEDS: METHYLPREDNISOLONE SOD SUCC 40 MG/ML VIAL IV SCH ×3 (01:59→20:47)
[2021-10-08] MEDS: IPRATROPIUM BROMIDE (0.02%) 0.5MG/2.5ML NEB HHN SCH ×4 (03:09→20:01)
[2021-10-08 05:50] LABS: CHLORIDE 107 mEq/L (98-107)
[2021-10-08] MEDS: METOCLOPRAMIDE HCL 10MG/2ML VIAL IV SCH ×4 (05:53→23:34)
[2021-10-08 06:27] LABS: HEMATOCRIT. 31.8 % (36.0-48.0); HEMOGLOBIN. 10.7 g/dL (12.0-16.0); MEAN CORPUSCULAR HEMOGLOBIN 28.7 pg (28.0-32.0); MEAN CORPUSCULAR VOLUME 85.4 fL (81.0-99.0); MEAN PLATELET VOLUME 7.6 fl (7.4-10.4); PLATELET 570 x1000/uL (130-400); RED BLOOD CELL COUNT 3.73 mill/uL (4.2-5.4)
[2021-10-08] MEDS: PANTOPRAZOLE SODIUM 40 MG/VIAL IV SCH (08:48)
[2021-10-08] MEDS: LEVETIRACETAM 500MG PREMIX 100 ML IV SCH ×2 (08:48→20:47)
[2021-10-08] MEDS: MULTIVITAMINS,THER W-MINERALS TABLET PO SCH (08:48)
[2021-10-08] MEDS: DOCUSATE SODIUM 100MG CAPSULE PO SCH ×2 (08:48→17:43)
[2021-10-08] MEDS: ZINC SULFATE 220 MG ( 50 ) CAPSULE PO SCH (08:49)
[2021-10-08] MEDS: METOPROLOL TARTRATE 100MG TABLET PO SCH ×2 (08:49→20:48)
[2021-10-08] MEDS: ASCORBIC ACID 500 MG TABLET PO SCH (08:49)
[2021-10-08 23:49] LABS: PLATELET ESTIMATE INCREASED
[2021-10-09] VITALS (13 sets, daily range): BP systolic 105–148; BP diastolic 52–106
[2021-10-09] MEDS: DEXT 5%/0.45% NACL 1000ML 1,000 ML IV SCH ×3 (01:31→17:27)
[2021-10-09] MEDS: IPRATROPIUM BROMIDE (0.02%) 0.5MG/2.5ML NEB HHN SCH ×4 (02:21→19:54)
[2021-10-09] MEDS: METOCLOPRAMIDE HCL 10MG/2ML VIAL IV SCH ×3 (05:57→17:27)
[2021-10-09 06:23] LABS: HEMATOCRIT. 30.5 % (36.0-48.0); HEMOGLOBIN. 10.1 g/dL (12.0-16.0); MEAN CORPUSCULAR HEMOGLOBIN 27.9 pg (28.0-32.0); MEAN CORPUSCULAR VOLUME 84.5 fL (81.0-99.0); MEAN PLATELET VOLUME 7.5 fl (7.4-10.4); PLATELET 512 x1000/uL (130-400); RED BLOOD CELL COUNT 3.61 mill/uL (4.2-5.4); RED CELL DISTRIBUTION WIDTH 14.6 % (11.6-14.6)
[2021-10-09 08:02] LABS: CHLORIDE 105 mEq/L (98-107)
[2021-10-09] MEDS: METHYLPREDNISOLONE SOD SUCC 40 MG/ML VIAL IV SCH ×2 (08:31→21:09)
[2021-10-09] MEDS: ZINC SULFATE 220 MG ( 50 ) CAPSULE PO SCH (08:31)
[2021-10-09] MEDS: LEVETIRACETAM 500MG PREMIX 100 ML IV SCH ×2 (08:31→21:08)
[2021-10-09] MEDS: ACETAMINOPHEN 325MG TABLET PO PRN (08:31)
[2021-10-09] MEDS: PANTOPRAZOLE SODIUM 40 MG/VIAL IV SCH (08:31)
[2021-10-09] MEDS: DOCUSATE SODIUM 100MG CAPSULE PO SCH (08:31)
[2021-10-09] MEDS: MULTIVITAMINS,THER W-MINERALS TABLET PO SCH (08:31)
[2021-10-09] MEDS: METOPROLOL TARTRATE 100MG TABLET PO SCH ×2 (08:32→21:09)
[2021-10-09] MEDS: ASCORBIC ACID 500 MG TABLET PO SCH (09:00)
[2021-10-09] MEDS: DOCUSATE SODIUM SUGAR FREE 100MG/10ML UDC NG SCH ×2 (10:00→21:08)
[2021-10-09] MEDS ORDERED: BISACODYL 10MG SUPP PR NR (12:45)
[2021-10-09 15:52] LABS: CLARITY URINE TURBID (CLEAR); COLOR URINE YELLOW (YELLOW); KETONES URINE NEGATIVE (NEGATIVE); LEUKOCYTE ESTERASE URINE TRACE (NEGATIVE); NITRITE URINE NEGATIVE (NEGATIVE); OCCULT BLOOD URINE 2+ (NEGATIVE); PH URINE 7.5 (4.5-8.0); PROTEIN URINE TRACE (NEGATIVE); SPECIFIC GRAVITY URINE 1.014 (1.005-1.030)
[2021-10-09 22:43] LABS: PLATELET ESTIMATE INCREASED
[2021-10-10] VITALS (12 sets, daily range): BP systolic 93–155; BP diastolic 44–92
[2021-10-10] MEDS: METOCLOPRAMIDE HCL 10MG/2ML VIAL IV SCH ×5 (00:32→23:09)
[2021-10-10] MEDS: IPRATROPIUM BROMIDE (0.02%) 0.5MG/2.5ML NEB HHN SCH ×4 (01:34→21:53)
[2021-10-10 06:09] LABS: HEMATOCRIT. 31.6 % (36.0-48.0); HEMOGLOBIN. 10.5 g/dL (12.0-16.0); MEAN CORPUSCULAR VOLUME 84.6 fL (81.0-99.0); MEAN PLATELET VOLUME 8.2 fl (7.4-10.4); PLATELET 538 x1000/uL (130-400); RED BLOOD CELL COUNT 3.74 mill/uL (4.2-5.4); RED CELL DISTRIBUTION WIDTH 14.9 % (11.6-14.6)
[2021-10-10 06:56] LABS: CHLORIDE 105 mEq/L (98-107)
[2021-10-10] MEDS: DOCUSATE SODIUM SUGAR FREE 100MG/10ML UDC NG SCH ×2 (09:08→17:10)
[2021-10-10] MEDS: MULTIVITAMINS,THER W-MINERALS TABLET PO SCH (09:09)
[2021-10-10] MEDS: ASCORBIC ACID 500 MG TABLET PO SCH (09:09)
[2021-10-10] MEDS: METOPROLOL TARTRATE 100MG TABLET PO SCH ×2 (09:09→20:25)
[2021-10-10] MEDS: METHYLPREDNISOLONE SOD SUCC 40 MG/ML VIAL IV SCH (09:09)
[2021-10-10] MEDS: ZINC SULFATE 220 MG ( 50 ) CAPSULE PO SCH (09:09)
[2021-10-10] MEDS: PANTOPRAZOLE SODIUM 40 MG/VIAL IV SCH (09:09)
[2021-10-10] MEDS: LEVETIRACETAM 500MG PREMIX 100 ML IV SCH ×2 (09:10→20:24)
[2021-10-10 10:37] LABS: PLATELET ESTIMATE INCREASED
[2021-10-10] MEDS ORDERED: SENNOSIDES 8.6MG TABLET GT PRN (15:45)
[2021-10-10] MEDS ORDERED: POLYETHYLENE GLYCOL 3350 (17GM) 1 DOSE PACK GT NR (15:45)
[2021-10-11] VITALS (10 sets, daily range): BP systolic 107–137; BP diastolic 48–99
[2021-10-11] MEDS: IPRATROPIUM BROMIDE (0.02%) 0.5MG/2.5ML NEB HHN SCH ×4 (01:54→21:31)
[2021-10-11] MEDS: METOCLOPRAMIDE HCL 10MG/2ML VIAL IV SCH ×3 (05:12→17:15)
[2021-10-11 06:07] LABS: HEMATOCRIT. 30.7 % (36.0-48.0); HEMOGLOBIN. 10.1 g/dL (12.0-16.0); MEAN CORPUSCULAR VOLUME 85.4 fL (81.0-99.0); MEAN PLATELET VOLUME 8.1 fl (7.4-10.4); PLATELET 502 x1000/uL (130-400)
[2021-10-11 06:39] LABS: CHLORIDE 106 mEq/L (98-107)
[2021-10-11] MEDS: PANTOPRAZOLE SODIUM 40 MG/VIAL IV SCH (08:40)
[2021-10-11] MEDS: LEVETIRACETAM 500MG PREMIX 100 ML IV SCH ×2 (08:40→20:35)
[2021-10-11] MEDS: DOCUSATE SODIUM SUGAR FREE 100MG/10ML UDC NG SCH ×2 (08:40→17:15)
[2021-10-11] MEDS: MULTIVITAMINS,THER W-MINERALS TABLET PO SCH (08:41)
[2021-10-11] MEDS: ZINC SULFATE 220 MG ( 50 ) CAPSULE PO SCH (08:41)
[2021-10-11] MEDS: METOPROLOL TARTRATE 100MG TABLET PO SCH ×2 (08:41→20:37)
[2021-10-11] MEDS: ASCORBIC ACID 500 MG TABLET PO SCH (08:41)
[2021-10-11] MEDS ORDERED: METHYLPREDNISOLONE SOD SUCC 40 MG/ML VIAL IV SCH (09:00)
[2021-10-11 11:21] LABS: PLATELET ESTIMATE INCREASED
[2021-10-11] MEDS: BISACODYL 10MG SUPP PR PRN (12:09)
[2021-10-11] MEDS ORDERED: VECURONIUM BROMIDE 10 MG/VIAL IV NR (12:15)
[2021-10-12] MEDS: METOCLOPRAMIDE HCL 10MG/2ML VIAL IV SCH (00:58)
[2021-10-12 02:22] VITALS: BP 133/69
== END 2021-10-12 00:55 | DRG 5 ==
LOC: ER 17:09 → MICUSO 18:53 → CVICU 09-19 12:14 → 5EST 10-02 15:30
PROVIDERS: ADMIT Internal Medicine; ATTEND Internal Medicine
PROC: 5A1955Z Respiratory Ventilation, Greater than 96 Consecutive Hours (ICD-10-PCS; 2021-09-18)
PROC: 06HY33Z Insertion of Infusion Device into Lower Vein, Percutaneous Approach (ICD-10-PCS; 2021-09-18)
PROC: 5A12012 Performance of Cardiac Output, Single, Manual (ICD-10-PCS; 2021-09-18)
PROC: 0BH17EZ Insertion of Endotracheal Airway into Trachea, Via Natural or Artificial Opening (ICD-10-PCS; 2021-09-18)
PROC: 4A10X4Z Monitoring of Central Nervous Electrical Activity, External Approach (ICD-10-PCS; 2021-09-19)
PROC: 4A10X4Z Monitoring of Central Nervous Electrical Activity, External Approach (ICD-10-PCS; 2021-09-23)
PROC: B54NZZA Ultrasonography of Left Upper Extremity Veins, Guidance (ICD-10-PCS; 2021-09-25)
PROC: 05HY33Z Insertion of Infusion Device into Upper Vein, Percutaneous Approach (ICD-10-PCS; 2021-09-25)
PROC: 0B110F4 Bypass Trachea to Cutaneous with Tracheostomy Device, Open Approach (ICD-10-PCS; principal; 2021-09-27)
PROC: 0DH63UZ Insertion of Feeding Device into Stomach, Percutaneous Approach (ICD-10-PCS; 2021-10-06)
DX: A41.9 Sepsis, unspecified organism (principal); K72.00 Acute and subacute hepatic failure without coma; I46.9 Cardiac arrest, cause unspecified; R65.21 Severe sepsis with septic shock; G93.41 Metabolic encephalopathy; E43 Unspecified severe protein-calorie malnutrition; R18.8 Other ascites; D68.9 Coagulation defect, unspecified; J80 Acute respiratory distress syndrome; D69.6 Thrombocytopenia, unspecified; G93.1 Anoxic brain damage, not elsewhere classified; J18.9 Pneumonia, unspecified organism; E87.6 Hypokalemia; E11.65 Type 2 diabetes mellitus with hyperglycemia; N39.0 Urinary tract infection, site not specified; M62.82 Rhabdomyolysis; D64.9 Anemia, unspecified; K59.00 Constipation, unspecified; I08.1 Rheumatic disorders of both mitral and tricuspid valves; I27.20 Pulmonary hypertension, unspecified; I49.01 Ventricular fibrillation; J98.2 Interstitial emphysema; K30 Functional dyspepsia; J93.9 Pneumothorax, unspecified; K29.70 Gastritis, unspecified, without bleeding; E87.0 Hyperosmolality and hypernatremia; L89.156 Pressure-induced deep tissue damage of sacral region; I21.4 Non-ST elevation (NSTEMI) myocardial infarction; K44.9 Diaphragmatic hernia without obstruction or gangrene; F12.90 Cannabis use, unspecified, uncomplicated; F17.200 Nicotine dependence, unspecified, uncomplicated; R13.12 Dysphagia, oropharyngeal phase; Z20.822 Contact with and (suspected) exposure to COVID-19; D72.829 Elevated white blood cell count, unspecified; Y92.238 Other place in hospital as the place of occurrence of the external cause; T38.0X5A Adverse effect of glucocorticoids and synthetic analogues, initial encounter; Z99.11 Dependence on respirator [ventilator] status; Z98.891 History of uterine scar from previous surgery; Z68.1 Body mass index [BMI] 19.9 or less, adult; Z87.440 Personal history of urinary (tract) infections
CPT/HCPCS: 36415; 36600; 71045; 71275; 74018; 74174; 76700; 76705; 76937; 80048; 80053; 80061; 80076; 80202; 80305; 80320; 81003; 82010; 82140; 82150; 82330; 82375; 82533; 82550; 82805; 82962; 83036; 83605; 83735; 83880; 84100; 84134; 84145; 84478; 84484; 84703; 85025; 86140; 86141; 86705; 86709; 86803; 86850; 86900; 87070; 87340; 87426; 87804; 93005; 93306; 94003; 94640; 95816; 99291; A6261; C1725; C9113; J0282; J0360; J0610; J0690; J1160; J1720; J1815; J1940; J1953; J2060; J2175; J2185; J2248; J2250; J2270; J2543; J2704; J2765; J2920; J3010; J3370; J3475; J3480; J3490; J7030; J7040; J7050; J7060; J7070; P9041; P9047; Q9967; U0003; U0005; A4315; G0480